=== PATIENT | male | born 1960 | race Caucasian/White ===

== ENCOUNTER → 2016-11-23 | Outpatient (CLI) | payer BC, OTHER ==
[~2016-11-23] MED LIST: ASPI81TA11 PO; ASPI81TA85 PO; ATEN25TA PO; ATOR40TA PO; BACT800T5 PO; DYAZCA PO; HYDR TOP; LOVA1CAP16 PO; METF500T PO; METR500T10 PO; NIASPAN PO; OMEGA OR; PRAV40TA2 PO; PRED20TA PO; SERT-141 PO; SERT25TA85 PO; TRIA37.53 PO; TYLE325T5 PO; [UNRECOGNIZED DRUG - OTHER] OR; neomycin OR; polyethylene glycol OR
--- NOTE | 2016-11-23 20:34 | REP ---
Clinical: Hematuria. Technique: Real time monroe scale ultrasound examination using curved array transducer. Findings: The bilateral kidneys are normal in contour, size, echogenicity, and reniform shape with that hydronephrosis, nephrolithiasis, cystic or renal mass lesion. No perinephric fluid collections are identified. Right kidney measures 11.9 x 7.4 x 6.1 cm. Left kidney measures 12.1 x 6.0 x 6.0 cm. Bladder is unremarkable. Prevoid volume equals 260 ml. Postvoid volume equals 4 ml. Postvoid residual equals 2%. Impression: Normal renal ultrasound. Signed by Johnny Garcia MD 11/23/2016 08:25 P
--- NOTE | 2016-11-23 21:54 | REP ---
Clinical: Persistent cough . Comparison: CT dated 08/05 . Technique: PA and lateral. Findings: The mediastinum and cardiac silhouette are normal. The lung caputo are clear and without acute consolidation, effusion, or pneumothorax. The skeletal structures are intact and normal. Impression: 1. No acute cardiopulmonary process. Signed by Johnny Garcia MD 11/23/2016 09:46 P
== END ==
LOC: M RAD 10:52
PROVIDERS: ATTEND Physician Assistant
DX: R05 Cough (principal)

== ENCOUNTER → 2016-12-15 | Outpatient (REF) | payer OTHER | LOC: M SMT 12:58 | PROVIDERS: ATTEND Nurse Practitioner Women's Health | DX: R31.0 Gross hematuria (principal) ==

== ENCOUNTER → 2016-12-15 | Outpatient (REF) | payer BC, OTHER | LOC: M LAB REF 12:44 | PROVIDERS: ATTEND Internal Medicine Medical Oncology | DX: C18.9 Malignant neoplasm of colon, unspecified (principal) ==

== ENCOUNTER → 2016-12-28 | Outpatient (CLI) | payer BC, OTHER ==
--- NOTE | 2016-12-28 14:41 | REP ---
Whole body PET / CT scan for restaging of colon carcinoma: Comparisons are the CT of the chest abdomen and pelvis dated 07/18/2016 and plain film PA and lateral chest study of 11/23/2069. Whole body PET / CT scanning is performed from the skull base to the upper thighs. Neck and supraclavicular areas: There is artifactual uptake in the adenoids and salivary glands. No hypermetabolic foci are identified. Chest: There are no hypermetabolic foci. Abdomen, pelvis and upper thighs: There is a 2 cm hypermetabolic focus with a standard uptake value of 7.00 in the caudate lobe of the liver. There was no lesion in this location on the comparison CT study of the 2015. There are no other hypermetabolic foci. Impression: There is a single hypermetabolic focus measuring 2 cm in diameter in the caudate lobe of the liver with a standard uptake value of 7.00. There are no other hypermetabolic foci. The study is performed with 9.6 mCi of F 18 FDG. Signed by Eleazar Orozco MD 12/28/2016 02:33 P
== END ==
LOC: M RAD 08:44
PROVIDERS: ATTEND Internal Medicine Medical Oncology
DX: C18.9 Malignant neoplasm of colon, unspecified (principal)

== ENCOUNTER → 2017-01-31 | Day surgery (SDC) | payer BC, OTHER ==
[~2017-01-31] VITALS: Ht 180.3 cm; Wt 118.8 kg
[~2017-01-31] MED LIST changes: +CIPR500T3 PO; +CIPROFLOXACIN 500 MG TAB PO SCH; +GLYCOPYRROLATE INJ 0.2 MG/ML 2 ML VIAL As Ordered ONE; +LIDOCAINE 2% INJ 100 MG/5 ML SDV (FOR ANES.) As Ordered ONE; +LR 1,000 ML IV SCH; +LevoFLOXacin IV 500 MG in APPROPRIATE DILUENT 1 EA IV ONE; +METOCLOPRAMIDE INJ 10MG/2ML VIAL (J2765) As Ordered ONE; +MIDAZOLAM INJ 2 MG/2 ML VIAL (J2250) As Ordered ONE; +NEOSTIGMINE 1MG/ML 5 ML SYRINGE (J2710) As Ordered ONE; +ONDANSETRON 4MG/2ML VIAL (J2405) As Ordered ONE; +ONDANSETRON 4MG/2ML VIAL (J2405) IV PRN; +PERCOCET 5MG/325MG TAB PO PRN; +PERCOCET PO; +PROPOFOL 200 MG/20 ML VIAL As Ordered ONE; +ROCURONIUM BROMIDE 50 MG/5 ML VIAL As Ordered ONE; +SERT25TA PO; -SERT25TA85 PO; +TRUL10IN SC; +fentaNYL 100 MCG/2 ML INJECTION (J3010) IV PRN; +fentaNYL 250 MCG/5 ML INJECTION (J3010) As Ordered ONE
[2017-01-31] MEDS: PERCOCET 5MG/325MG TAB PO PRN ×2 (21:44→22:01)
[2017-01-31 22:45] VITALS: BP 157/81
--- NOTE | 2017-02-01 11:51 | RO ---
DATE OF PROCEDURE: 01/31/2017 PREOPERATIVE DIAGNOSIS: Bladder neoplasm. POSTOPERATIVE DIAGNOSIS: Bladder neoplasm. SURGERY PERFORMED: Cystoscopy, plus exam under anesthesia, plus transurethral resection of bladder tumor bipolar resection. SURGEON: Dr. Yung Goodwin BURIAL NEEDS SALESPERSON: Nathan Whitfield, PGY3 ANESTHESIA: General. COMPLICATIONS: None. ESTIMATED BLOOD LOSS: N/A. FINDINGS: Left lateral wall bladder neoplasm about 1.5 cm. HISTORY OF PRESENT ILLNESS: This is a 56-year-old male patient that has a history of colorectal cancer. He has metastasis to the liver also. He has a bladder tumor found due to the reason that he had gross hematuria and flexible cystoscopy was done in the clinic that found a left lateral wall bladder tumor. For this reason, he was consented for cystoscopy, plus transurethral resection of the bladder tumor, plus exam under anesthesia. PROCEDURE DESCRIPTION: In a patient under general anesthesia in supine modified low lithotomy position after prepping and draping the area of concern, which included the entire genitalia, we introduced the cystoscope #21 [place] in diameter with a 30 degrees lens. The fossa navicularis, penile urethra, bulbar urethra, membranous urethra, and prostatic urethra were totally normal. The bladder had no stones, no foreign objects. Both ureteral orifices were seen excreting clear urine. There was a tumor about 1.5 to 2 cm on the left lateral wall. At that moment in time, we took the cystoscope out and grabbed the resectoscope. Under normal saline and bipolar resection, we resected the bladder tumor and then fulgurated the base of the bladder resection. There was no bleeding vessels. We then extracted the chip of bladder tumor with Ellik evacuator and spent the specimen for permanent pathology analysis. We then proceeded to actively take the cystoscope out and put a Elizondo catheter 20 [place] Helen[place] 3-way, plugged the 3-way and put the catheter to gravity and placed the balloon to 10 mL. It drained the bladder very nicely with clear urine output. PLAN: The patient will go home today. He will be prescribed ciprofloxacin 500 mg one tablet by mouth twice a day for 10 days, Percocet 5/325 mg one tablet by mouth every 6 hours as needed for pain. He will actively go back to a regular diet. He will followup at [facility] [place] in 3 days for a voiding trial. There were no complications of surgery. The specimen was sent for permanent pathology analysis.
== END | disposition home or self-care (01) ==
LOC: M SDC 13:46
PROVIDERS: ATTEND Urology
DX: D41.4 Neoplasm of uncertain behavior of bladder (principal); C19 Malignant neoplasm of rectosigmoid junction; C78.7 Secondary malignant neoplasm of liver and intrahepatic bile duct; I10 Essential (primary) hypertension; E78.2 Mixed hyperlipidemia; E11.40 Type 2 diabetes mellitus with diabetic neuropathy, unspecified; F41.9 Anxiety disorder, unspecified; N52.9 Male erectile dysfunction, unspecified; Z88.8 Allergy status to other drugs, medicaments and biological substances; Z79.899 Other long term (current) drug therapy; Z92.21 Personal history of antineoplastic chemotherapy; Z92.3 Personal history of irradiation; Z87.891 Personal history of nicotine dependence
CPT/HCPCS: 36415; 52234; 86850; 86900; 86901; 88305; J1956; J2250; J2405; J2710; J2765; J3010

== ENCOUNTER → 2017-02-16 | Outpatient (REF) | payer OTHER ==
[~2017-02-16] MED LIST changes: -CIPROFLOXACIN 500 MG TAB PO SCH; -GLYCOPYRROLATE INJ 0.2 MG/ML 2 ML VIAL As Ordered ONE; -LIDOCAINE 2% INJ 100 MG/5 ML SDV (FOR ANES.) As Ordered ONE; -LR 1,000 ML IV SCH; -LevoFLOXacin IV 500 MG in APPROPRIATE DILUENT 1 EA IV ONE; -METOCLOPRAMIDE INJ 10MG/2ML VIAL (J2765) As Ordered ONE; -MIDAZOLAM INJ 2 MG/2 ML VIAL (J2250) As Ordered ONE; -NEOSTIGMINE 1MG/ML 5 ML SYRINGE (J2710) As Ordered ONE; -ONDANSETRON 4MG/2ML VIAL (J2405) As Ordered ONE; -ONDANSETRON 4MG/2ML VIAL (J2405) IV PRN; -PERCOCET 5MG/325MG TAB PO PRN; -PROPOFOL 200 MG/20 ML VIAL As Ordered ONE; -ROCURONIUM BROMIDE 50 MG/5 ML VIAL As Ordered ONE; -fentaNYL 100 MCG/2 ML INJECTION (J3010) IV PRN; -fentaNYL 250 MCG/5 ML INJECTION (J3010) As Ordered ONE
== END ==
LOC: M SMT 14:40
PROVIDERS: ATTEND Nurse Practitioner Women's Health
DX: R39.89 Other symptoms and signs involving the genitourinary system (principal)

== ENCOUNTER → 2017-03-20 | Outpatient (REF) | payer BC, OTHER ==
[2017-03-20 13:26] LABS: INR 0.95
== END ==
LOC: M LAB REF 12:12
PROVIDERS: ATTEND Internal Medicine Medical Oncology
DX: C18.9 Malignant neoplasm of colon, unspecified (principal)

== ENCOUNTER → 2017-03-23 | Outpatient (CLI) | payer BC, OTHER ==
[~2017-03-23] MED LIST changes: +LIDOCAINE W/EPINEPHRINE 1% 20ML VIAL As Ordered ONE; +MIDAZOLAM INJ 2 MG/2 ML VIAL (J2250) As Ordered ONE; +SODIUM BICARBONATE 8.4% INJ 50MEQ 50 ML VIAL As Ordered ONE; +ceFAZolin 1GM INJ (J0690) As Ordered ONE; +fentaNYL 100 MCG/2 ML INJECTION (J3010) As Ordered ONE
--- NOTE | 2017-03-23 17:45 | REPKIM ---
CLINICAL HISTORY: Metastatic colon ca. The referring service has asked a chest [id number] placement for chemotherapy. PROCEDURE PERFORMED: Placement of totally implantable venous access device under combined sonographic and fluoroscopic guidance INTERVENTIONALIST: Karissa Echavarria MD CONSENT: The risks, benefits and alternatives to the procedure were explained to the patient and informed written consent was obtained. MEDICATIONS: Local Lidocaine, Ancef 1g IV, Versed IV and Fentanyl IV. SEDATION: Anxiolytic conscious sedation using Versed 1.0 mg IV and Fentanyl 50 mcg IV; starting time at 1505 and end at 1545. Independent trained observer was present during the entire duration of the conscious sedation for monitoring. EBL: 5 mL FLUORO TIME: 0.6 minutes DEVICE USED: [place] Port 8-Citizen Of [place], Single-Lumen Lot#[id number] PROCEDURE/FINDINGS: The patient was brought to the interventional radiology suite and was positioned supine on the table. Time out procedure was performed. Real time ultrasound was used and permanent image stored. The right IJ vein is patent and compressible. Using ultrasound guidance the internal jugular vein was accessed with a micropuncture needle, after infiltration of the skin and deep tissues with local anesthetic. A peel-away sheath was placed. The catheter tip was inserted via the sheath under controlled respiration. The sheath was removed, and the catheter was flushed with heparinized saline and clamped. Next attention was turned to creation of a subcutaneous pocket for the port along the upper chest. The overlying skin and deep tissues were infiltrated with local anesthetic. A transverse skin incision was made long enough to accommodate the reservoir, and using blunt dissection a subcutaneous pocket was created. A tunnel was created from the pocket to the access site. A clamp was advanced from the pocket incision to the venous access site and used to grasp the free end of the catheter and pull it through to the pocket incision. The catheter was trimmed, attached to the reservoir, and flushed with heparinized saline. The reservoir was inserted into the pocket and secured with 2-0 absorbable sutures. The deep tissue was closed with interrupted 2-0 Vicryl suture. The skin incision was closed with a running subcuticular suture of 4-0 Vicryl. The venotomy incision was closed with 4-0 Vicryl suture. Mastisol and Steri-Strips were applied. The port was then accessed and Heparin (100 units/mL concentration) locked in the port. A sterile dressing was then applied. Post procedure chest spot film radiograph showed the tip of the catheter is at the cavoatrial junction. The patient tolerated the procedure well with no immediate complications. This procedure was performed using ultrasound and fluoroscopy. Dr. Echavarria was present. IMPRESSION: 1. The right IJ vein is patent and compressible. 2. Successful placement of right IJ chest port placement as discussed above. The chest [id number] is ready for use. cc: Zuleima Garvin MD [facility]
== END | disposition home or self-care (01) ==
LOC: M IRPRO 12:10
PROVIDERS: ATTEND Internal Medicine Medical Oncology
DX: C18.9 Malignant neoplasm of colon, unspecified (principal); C79.9 Secondary malignant neoplasm of unspecified site
CPT/HCPCS: 36561; 76937; 77001; 99152; 99153; C1788; C1894; J0690; J2250; J3010

== ENCOUNTER → 2017-04-06 | Outpatient (REF) | payer OTHER ==
[~2017-04-06] MED LIST changes: -LIDOCAINE W/EPINEPHRINE 1% 20ML VIAL As Ordered ONE; -MIDAZOLAM INJ 2 MG/2 ML VIAL (J2250) As Ordered ONE; -SODIUM BICARBONATE 8.4% INJ 50MEQ 50 ML VIAL As Ordered ONE; -ceFAZolin 1GM INJ (J0690) As Ordered ONE; -fentaNYL 100 MCG/2 ML INJECTION (J3010) As Ordered ONE
[2017-04-06 16:53] LABS: ALBUMIN 3.7 GM/DL (3.2-5.2); ALBUMIN/GLOBULIN RATIO 0.97 (1.00-1.93); ALKALINE PHOSPHATASE 69 U/L (45-117); ALT/SGPT 35 U/L (12-78); ANION GAP 6 MEQ/L (8-16); AST/SGOT 16 U/L (15-37); BILIRUBIN,TOTAL 0.4 MG/DL (0.2-1.0); BLOOD UREA NITROGEN 15 MG/DL (7-18); CALCIUM LEVEL 9.6 MG/DL (8.5-10.1); CARBON DIOXIDE LEVEL 31 MEQ/L (21-32); CHLORIDE LEVEL 102 MEQ/L (98-107); CHOLESTEROL LEVEL 301 MG/DL (<200); CREATININE FOR GFR 1.05 MG/DL (0.70-1.30); GLOMERULAR FILTRATION RATE > 60.0 (>56); GLUCOSE, FASTING 126 MG/DL (70-105); POTASSIUM SERUM 4.4 MEQ/L (3.5-5.1); SODIUM LEVEL 139 MEQ/L (136-145); TOTAL PROTEIN 7.5 GM/DL (6.4-8.2); TRIGLYCERIDES LEVEL 142 MG/DL (<150)
== END ==
LOC: M SFHCLACO 09:49
PROVIDERS: ATTEND Physician Assistant
DX: I10 Essential (primary) hypertension (principal); E11.9 Type 2 diabetes mellitus without complications; E78.2 Mixed hyperlipidemia

== ENCOUNTER → 2017-04-25 | Outpatient (REF) | payer OTHER | LOC: M LAB REF 13:25 | PROVIDERS: ATTEND Internal Medicine Medical Oncology | DX: C18.9 Malignant neoplasm of colon, unspecified (principal) ==

== ENCOUNTER → 2017-05-09 | Outpatient (REF) | payer OTHER | LOC: M LAB REF 13:14 | PROVIDERS: ATTEND Internal Medicine Medical Oncology | DX: C18.9 Malignant neoplasm of colon, unspecified (principal) ==

== ENCOUNTER → 2017-05-24 | Outpatient (REF) | payer OTHER ==
[~2017-05-24] MED LIST changes: +ASPI-101 PO; -ASPI81TA11 PO; -ATOR40TA PO; +ATOR40TA75 PO; +AVASINJ2 IV; +COUM2.5T17 PO; +DEXA4TA PO; +LIDO1CRE14 TOP; +LOSA25TA8 PO; -METF500T PO; +METF500T13 PO; +METR1TAB66 PO; -METR500T10 PO; +OMEG100011 PO; +PANT40TA2 PO; +PROC10TA PO; +TRIA37.5 PO; +ZOFR8TAB PO; +[UNRECOGNIZED DRUG - CODE] IM; +[UNRECOGNIZED DRUG - CODE] IV; +[UNRECOGNIZED DRUG - CODE] IV
== END ==
LOC: M LAB REF 12:43
PROVIDERS: ATTEND Internal Medicine Medical Oncology
DX: C18.9 Malignant neoplasm of colon, unspecified (principal)

== ENCOUNTER → 2017-06-20 | Outpatient (CLI) | payer BC, OTHER ==
[~2017-06-20] MED LIST changes: +GASTROGRAFIN SOLUTION 30ML (Q9963) As Ordered ONE; +ISOVUE-370 76% 100ML VIAL (Q9967) As Ordered ONE
--- NOTE | 2017-06-21 04:45 | REP ---
Clinical: History of metastatic colon cancer. Technique: Axial contrast enhanced images from the thoracic inlet to the pubic symphysis using oral and 100 ml Isovue 370 intravenous contrast material with coronal and sagittal re-formations. Comparison: 07/18/2016. Findings: The bilateral lung caputo are well-aerated, relatively symmetric and clear. No parenchymal consolidation, significant nodule or mass lesion. A 2 mm focus of presumed scarring in the posterior apical right lower lobe ( image 48) remains stable. No pleural effusion/reaction. No pneumothorax. Tracheobronchial tree is patent. No axillary, hilar, or mediastinal adenopathy. Mediastinum demonstrates normal thoracic aorta and heart/pericardium. Surrounding musculoskeletal structures demonstrate age-related degenerative changes. Impression: Chronic stable changes. No acute mediastinal or pleuroparenchymal process appreciated. Signed by Johnny Garcia MD 06/21/2017 04:36 A
--- NOTE | 2017-06-21 05:14 | REP ---
Clinical: History of metastatic colon cancer. Technique: Axial contrast enhanced images from the thoracic inlet to the pubic symphysis using oral and 100 ml Isovue 370 intravenous contrast material with precontrast and delayed images of the abdomen as well as coronal and sagittal re-formations. Comparison: 07/18/2016. Findings: The current examination demonstrates surgical clips and adjacent low density changes in the caudate lobe of the liver as well as along the periphery of the left lobe adjacent to the ligamentum which represent a change from prior examination and should be correlated with recent surgical history. No further focal hepatic lesion identified. Spleen, pancreas, gallbladder, bilateral adrenal glands and kidneys are normal. The enteric system is without obstruction or acute inflammatory process. Normal terminal ileum and appendix identified in the right lower quadrant. Postsurgical changes related to resection and anastomoses at the rectosigmoid level remain stable and clear. No perisurgical infiltration, adenopathy or mass lesion identified at the level of the distal pelvis. Pelvis demonstrates collapsed normal bladder and age appropriate prostate/seminal vesicles. Small fat containing left inguinal hernia noted. No ascites. No obvious adenopathy. No significant new or recurrent mass lesion. Abdominal aorta and vasculature without aneurysm or dissection. Musculoskeletal structures demonstrate age-related changes without focal osseous abnormality. Impression: 1. Relatively new presumed postsurgical changes in the liver as described above with adjacent low density. These findings represent a change from prior examination and require correlation. No further hepatic lesions are identified. 2. Area of prior resection and anastomosis at the rectosigmoid is relatively clear and without acute or recurrent process. 3. No ascites. No new or recurrent mass lesion. No adenopathy. Signed by Johnny Garcia MD 06/21/2017 05:05 A
== END ==
LOC: M RAD 14:24
PROVIDERS: ATTEND Internal Medicine Medical Oncology
DX: C18.9 Malignant neoplasm of colon, unspecified (principal); Z88.8 Allergy status to other drugs, medicaments and biological substances; K76.89 Other specified diseases of liver; Z98.890 Other specified postprocedural states; Z98.0 Intestinal bypass and anastomosis status
CPT/HCPCS: 71260; 74178; Q9963; Q9967

== ENCOUNTER → 2017-07-04 | Outpatient (REF) | payer OTHER ==
[~2017-07-04] MED LIST changes: -GASTROGRAFIN SOLUTION 30ML (Q9963) As Ordered ONE; -ISOVUE-370 76% 100ML VIAL (Q9967) As Ordered ONE
== END ==
LOC: M LAB REF 13:45
PROVIDERS: ATTEND Internal Medicine Medical Oncology
DX: C18.9 Malignant neoplasm of colon, unspecified (principal)

== ENCOUNTER → 2017-07-27 | Outpatient (REF) | payer OTHER ==
[2017-07-27 16:07] LABS: ALBUMIN 3.1 GM/DL (3.2-5.2); ALBUMIN/GLOBULIN RATIO 0.86 (1.00-1.93); ALKALINE PHOSPHATASE 72 U/L (45-117); ALT/SGPT 74 U/L (12-78); ANION GAP 11 MEQ/L (8-16); AST/SGOT 40 U/L (15-37); BILIRUBIN,TOTAL 0.7 MG/DL (0.2-1.0); BLOOD UREA NITROGEN 17 MG/DL (7-18); CALCIUM LEVEL 8.9 MG/DL (8.5-10.1); CARBON DIOXIDE LEVEL 27 MEQ/L (21-32); CHLORIDE LEVEL 104 MEQ/L (98-107); CHOLESTEROL LEVEL 165 MG/DL (<200); CREATININE FOR GFR 1.01 MG/DL (0.70-1.30); GLOMERULAR FILTRATION RATE > 60.0 (>56); GLUCOSE, FASTING 126 MG/DL (70-105); POTASSIUM SERUM 4.1 MEQ/L (3.5-5.1); SODIUM LEVEL 142 MEQ/L (136-145); TOTAL PROTEIN 6.7 GM/DL (6.4-8.2); TRIGLYCERIDES LEVEL 205 MG/DL (<150)
== END ==
LOC: M SFHCLACO 08:12
PROVIDERS: ATTEND Physician Assistant
DX: I10 Essential (primary) hypertension (principal); E78.2 Mixed hyperlipidemia; E11.9 Type 2 diabetes mellitus without complications

== ENCOUNTER → 2017-08-01 | Outpatient (CLI) | payer BC, OTHER ==
--- NOTE | 2017-08-01 13:48 | REP ---
Clinical: Pain and swelling. Post chemotherapy. Findings: Real time monroe scale and color Doppler evaluation using linear high frequency transducer. Findings: Ultrasound examination of the left upper extremity demonstrates occlusive thrombus within the mid to distal basilic vein. The remainder of the examination including visualized jugular vein, subclavian, axillary, brachial and cephalic veins show normal flow, wave patterns and velocities. Impression: Positive examination with occlusive thrombus in the mid to distal basilic vein. Signed by Johnny Garcia MD 08/01/2017 01:40 P
== END ==
LOC: M RAD 13:04
PROVIDERS: ATTEND Internal Medicine Medical Oncology
DX: I82.612 Acute embolism and thrombosis of superficial veins of left upper extremity (principal)

== ENCOUNTER → 2017-08-01 | Outpatient (REF) | payer OTHER, BC | LOC: M LAB REF 08:22 | PROVIDERS: ATTEND Internal Medicine Medical Oncology | DX: C18.9 Malignant neoplasm of colon, unspecified (principal) ==

== ENCOUNTER 2017-08-29 11:36 | Inpatient (IN) | payer BC, OTHER ==
[~2017-08-29] VITALS: Ht 167.6 cm; Wt 114.9 kg
[~2017-08-29 11:36] MED LIST changes: -AVASINJ2 IV; -COUM2.5T17 PO; -DEXA4TA PO; -ISOVUE-370 76% 100ML VIAL (Q9967) As Ordered ONE; -LIDO1CRE14 TOP; -LOSA25TA8 PO; -OMEG100011 PO; -PANT40TA2 PO; -PROC10TA PO; -TRIA37.5 PO; -ZOFR8TAB PO; -[UNRECOGNIZED DRUG - CODE] IM; -[UNRECOGNIZED DRUG - CODE] IV; -[UNRECOGNIZED DRUG - CODE] IV
[2017-08-29] MEDS ORDERED: ASPI81TA85 PO (11:54)
[2017-08-29] MEDS ORDERED: PROC10TA PO (11:54)
[2017-08-29] MEDS ORDERED: ZOFR8TAB PO (11:54)
[2017-08-29] MEDS ORDERED: TRIA37.5 PO (11:54)
[2017-08-29] MEDS ORDERED: PANT40TA2 PO (11:54)
[2017-08-29] MEDS ORDERED: OMEG100011 PO (11:54)
[2017-08-29 12:23] LABS: MEAN CORPUSCULAR HEMOGLOBIN 31.9 pg (27.0-33.0); MEAN CORPUSCULAR HGB CONC 33.1 g/dl (32.0-36.5); MEAN CORPUSCULAR VOLUME 96.4 fl (80.0-96.0); RED CELL DISTRIBUTION WIDTH 16.8 % (11.5-14.5)
[2017-08-29 12:42] LABS: INR 1.01
[2017-08-29 12:48] LABS: ANION GAP 6 MEQ/L (8-16); BLOOD UREA NITROGEN 15 MG/DL (7-18); CALCIUM LEVEL 9.3 MG/DL (8.5-10.1); CARBON DIOXIDE LEVEL 33 MEQ/L (21-32); CHLORIDE LEVEL 101 MEQ/L (98-107); CREATININE FOR GFR 1.31 MG/DL (0.70-1.30); GLOMERULAR FILTRATION RATE > 60.0 (>56); GLUCOSE, FASTING 98 MG/DL (70-105); POTASSIUM SERUM 3.4 MEQ/L (3.5-5.1); SODIUM LEVEL 140 MEQ/L (136-145)
[2017-08-29] MEDS ORDERED: [UNRECOGNIZED DRUG - CODE] IV (12:58)
[2017-08-29] MEDS ORDERED: [UNRECOGNIZED DRUG - CODE] IV (12:58)
[2017-08-29] MEDS ORDERED: LOSA25TA8 PO (12:58)
[2017-08-29] MEDS ORDERED: [UNRECOGNIZED DRUG - CODE] IM (12:58)
[2017-08-29] MEDS ORDERED: AVASINJ2 IV (12:59)
[2017-08-29 13:01] LABS: ADD MANUAL DIFFER YES; DIFF SLIDE NUMBER 237; PLATELET COUNT, AUTOMATED 91 10^3/uL (150-450)
[2017-08-29] MEDS ORDERED: DEXA4TA PO (13:03)
[2017-08-29] MEDS ORDERED: LIDO1CRE14 TOP (13:03)
[2017-08-29 13:05] LABS: BASOPHILS 2 % (0-4); EOSINOPHILS 2 % (0-5); POIKILOCYTOSIS 1+
[2017-08-29 13:06] LABS: ANISOCYTOSIS 1+; POLYCHROMASIA 1+
[2017-08-29 13:07] LABS: IMMATURE PLATELET FRACTION % 5.2 % (0.0-10.9); PLATELET F 96
[2017-08-29] MEDS ORDERED: HEPARIN SOD (PORCINE) 5000 UNITS/ML VIAL IV ONE (13:30)
--- NOTE | 2017-08-29 13:59 | HPEPDOC ---
[facility] Medical History & Physical Date of Admission Aug 29, 2017 History and Physical ATTENDING: PCP: Delfino CHACON CC: SOB HPI: 57yoM with a past medical history significant for Stage 4 Colon Ca following with Dr Garvin, receiving Chemotherapy, due today, postponed to as per Dr Garvin related to his labs. Was noted 08/01/17 to have LUE Superficial Vein Thrombosis (Basilic vein) as per Dr Garvin. Pt states RUE edema and and erythema resolved. For the past 1 month he has noticed SOB, lightheaded, dizzy, and ease of fatigue. Spoke to Dr Garvin today and was referred for testing, which when completed he was referred to ED for evaluation and management. Denies any fevers, chills, BAE, CP, cough, palpitations, abdominal pain, N/V/D or changes in bowel or bladder habits. Denies prior bleeding history. states he sometimes has blood with BM at the end of a chemo cycle and then resolves. Blood on the paper and in the bowl. No dark stools. Upon presentation to the hospital the patient was found to have PE, thus the hospitalist team was consulted. PMHx: HTN HLD DM2 Colon Ca S/P resection/radiation tx completed 04/05. Chemo due 09/05/[address] Garvin. Anxiety ED chronic tinnitus PSHX: Rt inguinal hernia HNP L4 1997 vasectomy Rectosigmoid Colon Ca resection. Dr Koehler. Colonoscopy 07/05 TURBT 02/03 Liver resection 03/06 Dr Zambrano Liver Specialist [facility] Obesity. BMI 42. SOCHX: Resides in: [facility] Marital Status: Kids: 2retired [employer] Tobacco use: denies ETOH: denies Illicit Drugs: Denies Recent travel: denies Advanced directives: none FAMHX: Mother: HTN Father: ND Siblings: 1 brother, 1 sister Alive, breast Ca Children: 2 Dtr Alive, well Unexpected deaths due to medical reasons: None. ROS: As noted in HPI, otherwise 11pt ROS of systems reviewed and unremarkable. PE: GEN: 57yoM, appears stated age. Well-nourished, well developed. No acute distress. Alert and oriented x 3. Pleasant, interactive. HEENT: Normocephalic, atraumatic. Pupils are equal, round, and reactive to light. Extraocular movements are intact. No nystagmus appreciated. Sclera are nonicteric. Conjunctiva without injection. Nose midline. Nasal turbinates without bogginess. EACs both patent BL. TMs both visualized and monroe with good cone of light, no bulging or erythema. No facial asymmetry. Moist mucous membranes. Dentition fair. Pharynx pink and moist, no cobblestoning. Neck supple , trachea midline. No lymphadenopathy or thyromegaly appreciated. CHEST: Regular rate and rhythm, +S1, +S2 LUNGS: Clear to auscultation bilaterally. No wheezes, rales, or rhonchi. Breathing appears symmetric and easy. Patient is speaking in full sentences. No accessory muscle use. ABD: Round, soft, non-tender, non-distended. +Bowel sounds throughout. No rebound or guarding. No costovertebral angle tenderness. EXT: Pulses 2+ bilaterally dorsalis pedis and radial. No lower extremity edema appreciated. SKIN: [place], dry, warm. Capillary refill <2sec. No rashes. NEURO: Alert and oriented x 3. Cranial nerves III-XII are intact. No focal deficits appreciated. LUE U/S 08/01/17 Ultrasound examination of the left upper extremity demonstrates occlusive thrombus within the mid to distal basilic vein. The remainder of the examination including visualized jugular vein, subclavian, axillary, brachial and cephalic veins show normal flow, wave patterns and velocities. CTA Chest Moderate bilateral pulmonary emboli right greater than left. U/S Comparison is a 08/01. 2017. On the comparison study. There is deep vein thrombus in the mid to distal left basilic vein. The study identifies extension of the deep vein thrombus e into the left axillary vein. In the basilic vein there is now a trace of vascular flow indicating that the thrombus in the basilic vein as now nonocclusive. EKG: SR 60 bpm. A&P: 57yoM with a past medical history significant for Stage 4 Colon Ca following with Dr Garvin, receiving Chemotherapy, due today, postponed to as per Dr Garvin related to his labs. Was noted 08/01/17 to have LUE Superficial vein thrombosis (Basilic vein) as per Dr Garvin. Pt states RUE edema and and erythema resolved. For the past 1 month he has noticed SOB, lightheaded, dizzy, and ease of fatigue. Spoke to Dr Garvin today and was referred for testing, which when completed he was referred to ED for evaluation and management. 1. The patient will be admitted to PCU for at least [address] Ibarra 's service. Pt is discussed with Dr Shah. 2. UE DVT/PE. Heparin gtt as per protocol with PTT Q6 hr. Plan to bridge to Coumadin, Coumadin 5 mg po x 1 tonight. Daily INR. 3. Stage 4 Colon CA. Follows as outpt with Dr Garvin. Pt last received Chemo 2 weeks ago. Was due for chemo today but labs were reviewed as per Dr Garvin and this was postponed until 09/05/17. Pt is noted to be pancytopenic. Also monitor Q6 CBC as well. 4. HTN. Atenolol with hold parameters. Hold diuretic temporarily. 5. DM2. CC diet. Hold Trulicity/metformin. SSI. 6. HLD. Cont statin. The patient is a Full code Vital Signs Vital Signs Date Time Temp Pulse Resp B/P (MAP) Pulse Ox O2 Delivery O2 Flow Rate FiO2 08/29/17 12:05 08/29/17 11:51 97.7 68 16 97 Room Air Laboratory Data Labs 24H Laboratory Tests 2 08/29/17 12:05: Nucleated Red Blood Cells % (auto) 0.0, Neutrophils 58, Lymphocytes (Manual) 20 , Monocytes (Manual) 15H, Eosinophils (Manual) 2, Basophils (Manual) 2, Atypical Lymphocytes 3, Platelet Estimate DECREASED, Immature Platelet Fraction 5.2, Polychromasia 1+, Poikilocytosis 1+, Anisocytosis 1+, Prothrombin Time 13.4 , Prothromb Time International Ratio 1.01, Activated Partial Thromboplast Time 25.2L, Anion Gap 6L, Glomerular Filtration Rate > 60.0, Blood Urea Nitrogen 15, Creatinine 1.31H, Sodium Level 140, Potassium Level 3.4L, Chloride Level 101, Carbon Dioxide Level 33H, Calcium Level 9.3 CBC/BMP Laboratory Tests 08/29/17 12:05 Red Blood Count 3.57 L, Mean Corpuscular Volume 96.4 H, Mean Corpuscular Hemoglobin 31.9, Mean Corpuscular Hemoglobin Concent 33.1, Red Cell Distribution Width 16.8 H, Calcium Level 9.3 Home Medications Scheduled (Trulicity) 0.75 Mg/0.5 Ml Inj, 0.75 MG SC QWEEK SATURDAYS (Tbwxsdbgy-Lurvxpcaub-Fasi 2.5-2.5 %) 1 Cre Cre, 1 DOSE TOP ASDIRECTED APPLY TO CHEMO PORT 1-2 HOURS BEFORE RECEIVING CHEMO Aspirin (Aspir-81) 81 Mg Tab, 81 MG PO QHS Atenolol (Atenolol) 25 Mg Tab, 25 MG PO DAILY Atorvastatin Calcium (Atorvastatin Calcium) 40 Mg Tab, 40 MG PO QHS Bevacizumab (Avastin) Unknown Strength Inj, Unknown Dose IV Q2WK WAS DUE 08/29/17 BUT BLOOD COUNTS TOO LOW Dexamethasone (Dexamethasone) 4 Mg Tab, 4 MG PO ASDIRECTED TAKE 1BID ON DAYS 2&3 AFTER CHEMO THEN 1QD ON DAYS 4&5 AFTER CHEMO Fluorouracil (Fluorouracil) Unknown Strength Inj, Unknown Dose IV Q2WK WAS DUE 08/29/17 BUT BLOOD COUNTS TOO LOW Hydrochlorothiazide W/Triamter (Triamterene/Hydrochloroth 37.5-25 mg) 1 Tab Tab , 1 TAB PO DAILY Leucovorin Calcium (Leucovorin Calcium) Unknown Strength Inj, Unknown Dose IM Q2WK WAS DUE 08/29/17 BUT BLOOD COUNTS TOO LOW Losartan Potassium (Losartan Potassium) 25 Mg Tab, 25 MG PO DAILY Metformin Hydrochloride (Metformin HCl) 500 Mg Tab, 500 MG PO DAILY Sar[place]osa 3 Polyunsat Fatty Acids ([place]osa 3 1000 mg) 1 Cap Cap, 2 CAP PO BID Oxaliplatin (Oxaliplatin) 50 Mg Inj, 50 MG IV Q2WK WAS DUE 08/29/17 BUT BLOOD COUNTS TOO LOW Pantoprazole Sodium (Pantoprazole Sodium) 40 Mg Tab, 40 MG PO DAILY Scheduled PRN Ondansetron HCl (Zofran) 8 Mg Tab, 8 MG PO BID PRN for NAUSEA OR VOMITING Prochlorperazine Maleate (Prochlorperazine Maleate) 10 Mg Tab, 10 MG PO Q6H PRN for NAUSEA Allergies Coded Allergies: Fluconazole (Verified Allergy, Severe, DYSPNEA,RASH, 01/31/17) Niacin (Verified Allergy, Severe, DYSPNEA/RASH, 07/28/15) CLARIFIED PER PATIENT Anabell Robbins Aug 29, 2017 13:59 ELDA SHAH MD Aug 30, 2017 12:03
[2017-08-29] MEDS ORDERED: ACETAMINOPHEN TAB 650MG DOSE (2X325MG) PO PRN (14:30)
[2017-08-29] MEDS ORDERED: GLUCOSE 4 GM CHEW TABLET PO PRN (14:45)
[2017-08-29] MEDS ORDERED: GLUCAGON FOR INJ 1 MG VIAL (J1610) SC PRN (14:45)
[2017-08-29] MEDS ORDERED: DEXTROSE 50% 50 ML SYRINGE IV PRN (14:45)
[2017-08-29] MEDS: HEPARIN DRIP 25,000 UNITS in APPROPRIATE DILUENT 1 EA IV SCH (14:52)
[2017-08-29] MEDS ORDERED: HEPARIN SOD (PORCINE) 5000 UNITS/ML VIAL IV PRN (15:00)
[2017-08-29] MEDS ORDERED: WARFARIN SOD 5 MG TAB PO ONE (16:00)
[2017-08-29] MEDS ORDERED: POTASSIUM CHLORIDE 10 MEQ SR TABLET PO ONE (16:00)
[2017-08-29 16:30] VITALS: BP 144/84
[2017-08-29] MEDS: HumaLOG INSULIN (NovoLOG) PER UNIT SC SCH ×2 (16:51→20:20)
[2017-08-29 20:00] VITALS: BP 140/86
[2017-08-29] MEDS: ATORVASTATIN 20 MG TAB PO SCH (20:18)
--- NOTE | 2017-08-29 20:36 | ECGEPIP ---
Stationary ECG Study [facility] - ED Test Date: 2017-08-29 Pat Name: PINEDA SHERMAN Department: Room: - Gender: M Sales And Training Specialist: vladimir : 1960 Requested By: Carl Seth Order Number: [id number] Reading MD: Norma Pierre Measurements Intervals [place] Rate: 60 P: 39 ND: 193 QRS: 21 QRSD: 102 T: 45 QT: 397 QTc: 397 Interpretive Statements SINUS RHYTHM SIMILAR 08/20/15 Electronically Signed On 08-29-2017 20:35:54 EDT by Norma Pierre
[2017-08-29 21:07] LABS: MEAN CORPUSCULAR HEMOGLOBIN 31.9 pg (27.0-33.0); MEAN CORPUSCULAR HGB CONC 33.2 g/dl (32.0-36.5); MEAN CORPUSCULAR VOLUME 95.9 fl (80.0-96.0); RED CELL DISTRIBUTION WIDTH 16.9 % (11.5-14.5); WHITE BLOOD COUNT 1.9 10^3/uL (4.0-10.0)
[2017-08-29 21:31] LABS: ANION GAP 6 MEQ/L (8-16); BLOOD UREA NITROGEN 15 MG/DL (7-18); CALCIUM LEVEL 9.7 MG/DL (8.5-10.1); CARBON DIOXIDE LEVEL 30 MEQ/L (21-32); CHLORIDE LEVEL 103 MEQ/L (98-107); CREATININE FOR GFR 1.16 MG/DL (0.70-1.30); GLOMERULAR FILTRATION RATE > 60.0 (>56); GLUCOSE, FASTING 131 MG/DL (70-105); SODIUM LEVEL 139 MEQ/L (136-145)
[2017-08-29 21:32] LABS: POTASSIUM SERUM 3.8 MEQ/L (3.5-5.1)
[2017-08-29 21:55] VITALS: BP 140/70
[2017-08-30] VITALS (7 sets, daily range): BP systolic 132–158; BP diastolic 72–88
[2017-08-30 02:23] LABS: MEAN CORPUSCULAR HEMOGLOBIN 31.7 pg (27.0-33.0); WHITE BLOOD COUNT 1.8 10^3/uL (4.0-10.0)
[2017-08-30 09:00] LABS: MEAN CORPUSCULAR HEMOGLOBIN 31.9 pg (27.0-33.0); MEAN CORPUSCULAR HGB CONC 33.1 g/dl (32.0-36.5); MEAN CORPUSCULAR VOLUME 96.6 fl (80.0-96.0); RED CELL DISTRIBUTION WIDTH 16.8 % (11.5-14.5); WHITE BLOOD COUNT 1.9 10^3/uL (4.0-10.0)
[2017-08-30] MEDS: PANTOPRAZOLE 40MG TAB (PROTONIX) PO SCH (09:04)
[2017-08-30] MEDS: ATENOLOL 25 MG TAB PO SCH (09:05)
[2017-08-30] MEDS: HumaLOG INSULIN (NovoLOG) PER UNIT SC SCH ×4 (09:07→20:22)
[2017-08-30] MEDS: HEPARIN DRIP 25,000 UNITS in APPROPRIATE DILUENT 1 EA IV SCH (09:10)
[2017-08-30] MEDS ORDERED: AQUAPHOR **100GM** OINT TOP PRN (14:30)
--- NOTE | 2017-08-30 15:35 | IPNPDOC ---
Date Seen The patient was seen on 08/30/17. Progress Note SUBJECTIVE: Patient is a 57 showed gentleman admitted yesterday for upper extremity DVT and pulmonary emboli. He's currently being bridged with heparin and Coumadin. He denies chest pain, shortness of breath, productive sputum, hemoptysis. He denies nausea, vomiting, diarrhea. He's tolerating oral intake. No issues with voiding or bowel movements. OBJECTIVE PHYSICAL EXAMINATION: VITAL SIGNS: Please see below. GENERAL: No acute distress, alert and oriented HEENT: PERRLA. Throat Clear. Neck supple CARDIOVASCULAR: Regular rate and rhythm. RESPIRATORY: Clear to auscultation bilaterally. ABDOMINAL: Soft, anteroseptal positive bowel sounds, masses or rebound EXTREMITIES: No edema, no calf tenderness NEUROLOGICAL: Cranial nerves II through XII grossly intact. No gross motor sensory deficits PSYCHOLOGICAL: Negative LABORATORY DATA: Please see below. MICROBIOLOGY: Please see below. DVT prophylaxis ordered?: Yes ASSESSMENT AND PLAN: This is a 57-year-old gentleman with left upper extremity DVT and pulmonary embolism. He'll be here for at least 5 days while we bridge him from heparin to Coumadin. PROBLEMS: 1. Pulmonary emboli: He scores class III on the PE severity index him each criteria for inpatient treatment. We'll continue with bridging heparin and Coumadin with goal INR 2-3 which will likely be achieved in the next 5-6 days.. 2. Left UE DVT: As outlined above 3. Stage 4 Colon CA. Follows as outpt with Dr Garvin. Pt last received Chemo 2 weeks ago. Was due for chemo today but labs were reviewed as per Dr Garvin and this was postponed until 09/05/17. Pt is noted to be pancytopenic. Also monitor Q6 CBC as well. 4. Pancytopenia: likely secondary to recent chemo. Appears afebrile and no signs of sepsis. will continue to follow. Check CBC with diff tomorrow and calculate ANC. 5. HTN. Continue Atenolol with hold parameters. Hold diuretic temporarily. 6. DM2. CC diet. Hold Trulicity/metformin. SSI. 7. HLD. Cont statin. 8. Anxiety: Stable. 9. DVT prophylaxis: Ridging with heparin and Coumadin with goal of therapy INR 2 -3 DISPOSITION: Patient will likely need to be here for at least 5 days. He is stable hemodynamically. Therefore, I will downgrade him to medical surgical floor on telemetry.. VS, I&O, 24H, Fishbone Vital Signs/I&O Vital Signs Date Time Temp Pulse Resp B/P (MAP) Pulse Ox O2 Delivery O2 Flow Rate FiO2 08/30/17 12:00 97.5 75 18 140/82 (101) 97 Room Air I&O- Last 24 Hours up to 6 AM 08/31/17 06:00 Intake Total 360 ml Output Total 600 ml Balance -240 ml Laboratory Data 24H LABS Laboratory Tests 2 08/29/17 16:46: Bedside Glucose (Misc Panel) 109H 08/29/17 20:06: Bedside Glucose (Misc Panel) 137H 08/29/17 20:50: Activated Partial Thromboplast Time 140.6*H, Anion Gap 6L, Glomerular Filtration Rate > 60.0, Blood Urea Nitrogen 15, Creatinine 1.16, Sodium Level 139, Potassium Level 3.8, Chloride Level 103, Carbon Dioxide Level 30, Calcium Level 9.7, Total Creatine Kinase 141, Creatine Kinase MB 1.0, Creatine Kinase MB Relative Index 0.70, Troponin I < 0.02 08/30/17 06:20: Activated Partial Thromboplast Time 86.7H, Total Creatine Kinase 125, Creatine Kinase MB 1.0, Creatine Kinase MB Relative Index 0.80, Troponin I < 0.02 08/30/17 06:55: Bedside Glucose (Misc Panel) 138H 08/30/17 11:30: Bedside Glucose (Misc Panel) 170H 08/30/17 12:12: Activated Partial Thromboplast Time 73.1H CBC/BMP Laboratory Tests 08/29/17 20:50 Red Blood Count 3.39 L, Mean Corpuscular Volume 95.9, Mean Corpuscular Hemoglobin 31.9, Mean Corpuscular Hemoglobin Concent 33.2, Red Cell Distribution Width 16.9 H, Calcium Level 9.7, Total Creatine Kinase 141 08/30/17 02:07 Red Blood Count 3.50 L, Mean Corpuscular Volume 96.0, Mean Corpuscular Hemoglobin 31.7, Mean Corpuscular Hemoglobin Concent 33.0, Red Cell Distribution Width 17.0 H 08/30/17 08:47 Red Blood Count 3.79 L, Mean Corpuscular Volume 96.6 H, Mean Corpuscular Hemoglobin 31.9, Mean Corpuscular Hemoglobin Concent 33.1, Red Cell Distribution Width 16.8 H Microbiology Microbiology 08/30/17 Stool Occult Blood (JENNIE) - Final, Complete LEENA ALEJANDRA DO Aug 30, 2017 15:35
[2017-08-30] MEDS: diphenhydrAMINE 12.5MG/5ML ELIXIR UDC XX SCH ×2 (17:01→20:19)
[2017-08-30] MEDS: MAALOX 30 ML SUSP *UDC SSP SCH ×2 (17:02→20:19)
[2017-08-30] MEDS: ATORVASTATIN 20 MG TAB PO SCH (20:18)
[2017-08-31 05:43] LABS: BASO % 0.7 % (0.0-1.0); EOS % 2.9 % (0.0-3.0); IMMATURE GRANULOCYTE % 0.7 % (0-0); LYMPH # 0.3 10^3/uL (1.5-4.5); LYMPH % 21.9 % (24.0-44.0); MEAN CORPUSCULAR HEMOGLOBIN 31.3 pg (27.0-33.0); MEAN CORPUSCULAR HGB CONC 32.6 g/dl (32.0-36.5); MEAN CORPUSCULAR VOLUME 96.1 fl (80.0-96.0); MONO # 0.5 10^3/uL (0.0-0.8); MONO % 39.4 % (0.0-5.0); NEUTROPHILS % 34.4 % (36.0-66.0); PLATELET COUNT, AUTOMATED 118 10^3/uL (150-450); RED CELL DISTRIBUTION WIDTH 16.5 % (11.5-14.5); WHITE BLOOD COUNT 1.4 10^3/uL (4.0-10.0)
[2017-08-31 05:54] LABS: INR 0.99
[2017-08-31 06:00] VITALS: BP 168/70
[2017-08-31] MEDS: HEPARIN DRIP 25,000 UNITS in APPROPRIATE DILUENT 1 EA IV SCH (06:06)
[2017-08-31 06:09] LABS: ALBUMIN 2.8 GM/DL (3.2-5.2); ANION GAP 7 MEQ/L (8-16); BLOOD UREA NITROGEN 14 MG/DL (7-18); CALCIUM LEVEL 9.7 MG/DL (8.5-10.1); CARBON DIOXIDE LEVEL 30 MEQ/L (21-32); CHLORIDE LEVEL 103 MEQ/L (98-107); CREATININE FOR GFR 0.94 MG/DL (0.70-1.30); GLOMERULAR FILTRATION RATE > 60.0 (>56); GLUCOSE, FASTING 128 MG/DL (70-105); PHOSPHORUS LEVEL 3.9 MG/DL (2.5-4.9); POTASSIUM SERUM 3.5 MEQ/L (3.5-5.1); SODIUM LEVEL 140 MEQ/L (136-145)
[2017-08-31 06:37] LABS: NEUTROPHILS # 0.5 10^3/uL (1.8-7.7)
[2017-08-31] MEDS: diphenhydrAMINE 12.5MG/5ML ELIXIR UDC XX SCH ×4 (07:30→21:00)
[2017-08-31] MEDS: MAALOX 30 ML SUSP *UDC SSP SCH ×4 (07:30→21:00)
[2017-08-31] MEDS: HumaLOG INSULIN (NovoLOG) PER UNIT SC SCH ×4 (07:30→20:36)
[2017-08-31] MEDS ORDERED: WARFARIN SOD 5 MG TAB PO ONE (09:00)
[2017-08-31] MEDS: PANTOPRAZOLE 40MG TAB (PROTONIX) PO SCH (09:04)
[2017-08-31] MEDS: ATENOLOL 25 MG TAB PO SCH (09:05)
--- NOTE | 2017-08-31 11:32 | IPNPDOC ---
Date Seen The patient was seen on 08/31/17. Progress Note SUBJECTIVE: Patient is a 57 showed gentleman admitted a couple days ago for upper extremity DVT and pulmonary emboli. He's currently being bridged with heparin and Coumadin. He denies chest pain, shortness of breath, productive sputum, hemoptysis. He denies nausea, vomiting, diarrhea. He's tolerating oral intake. No issues with voiding or bowel movements. OBJECTIVE PHYSICAL EXAMINATION: VITAL SIGNS: Please see below. GENERAL: NAD, A&O X3 HEENT: PERRLA, Throat clear, neck supple CARDIOVASCULAR: RRR. RESPIRATORY: CTA BILATERALLY. ABDOMINAL: SOFT, NT/ND, NORMOACTIVE BS, NO REBOUND EXTREMITIES: NO EDEMA, NO TENDERNESS NEUROLOGICAL: CN II-XII GROSSLY INTACT NO DEFICITS PSYCHOLOGICAL: NEGATIVE LABORATORY DATA: Please see below. DVT prophylaxis ordered?: YES ASSESSMENT AND PLAN: This is a 57-year-old gentleman with left upper extremity DVT and pulmonary embolism. He'll be here for at least 5 days while we bridge him from heparin to Coumadin. PROBLEMS: 1. Pulmonary emboli: He scores class III on the PE severity index him each criteria for inpatient treatment. We'll continue with bridging heparin and Coumadin with goal INR 2-3 which will likely be achieved in the next 5DAYS. He missed last evenings dose of coumadin. Will give one time dose coumadin 5mg this morning and continue with 5mg daily starting this evening. (total dose today is 10mg) 2. Left UE DVT: As outlined above 3. Stage 4 Colon CA. Follows as outpt with Dr Garvin. Pt last received Chemo 2 weeks ago. Was due for chemo today but labs were reviewed as per Dr Garvin and this was postponed until 09/05/17. Pt is noted to be pancytopenic. Also monitor Q6 CBC as well. 4. Pancytopenia: likely secondary to recent chemo. ANC: 475 and offered neulasta. Appears afebrile and no signs of sepsis. will continue to follow. Check CBC with diff tomorrow and calculate ANC. 5. HTN. Continue Atenolol with hold parameters. Hold diuretic temporarily. 6. DM2. CC diet. Hold Trulicity/metformin. SSI. 7. HLD. Cont statin. 8. Anxiety: Stable. 9. DVT prophylaxis: Ridging with heparin and Coumadin with goal of therapy INR 2 -3 DISPOSITION: Patient will likely need to be here for at least 5 days. He is stable hemodynamically. Therefore, I will downgrade him to medical surgical floor on telemetry.. VS, I&O, 24H, Jasone Vital Signs/I&O Vital Signs Date Time Temp Pulse Resp B/P (MAP) Pulse Ox O2 Delivery O2 Flow Rate FiO2 08/31/17 09:05 78 168/70 08/31/17 06:00 97.5 20 96 08/30/17 22:10 Room Air Laboratory Data 24H LABS Laboratory Tests 2 08/30/17 11:30: Bedside Glucose (Misc Panel) 170H 08/30/17 12:12: Activated Partial Thromboplast Time 73.1H 08/30/17 16:55: Bedside Glucose (Misc Panel) 99 08/31/17 05:25: Activated Partial Thromboplast Time 67.4H, Immature Granulocyte % (Auto) 0.7H, White Blood Count 1.4L, Red Blood Count 3.58L, Hemoglobin 11.2L, Hematocrit 34.4L, Mean Corpuscular Volume 96.1H, Mean Corpuscular Hemoglobin 31.3, Mean Corpuscular Hemoglobin Concent 32.6, Red Cell Distribution Width 16.5H, Platelet Count 118L, Neutrophils (%) (Auto) 34.4L, Lymphocytes (%) (Auto) 21.9L , Monocytes (%) (Auto) 39.4H, Eosinophils (%) (Auto) 2.9, Basophils (%) (Auto) 0.7, Neutrophils # (Auto) 0.5L, Lymphocytes # (Auto) 0.3L, Monocytes # (Auto) 0.5, Eosinophils # (Auto) 0.0, Basophils # (Auto) 0.0, Immature Granulocyte # ( Auto) 0.0, Nucleated Red Blood Cells % (auto) 0.0, Prothrombin Time 13.2, Prothromb Time International Ratio 0.99, Blood Urea Nitrogen 14, Creatinine 0.94 , Sodium Level 140, Potassium Level 3.5, Chloride Level 103, Carbon Dioxide Level 30, Anion Gap 7L, Glomerular Filtration Rate > 60.0, Calcium Level 9.7, Phosphorus Level 3.9, Albumin 2.8L CBC/BMP Laboratory Tests 08/31/17 05:25 Red Blood Count 3.58 L, Mean Corpuscular Volume 96.1 H, Mean Corpuscular Hemoglobin 31.3, Mean Corpuscular Hemoglobin Concent 32.6, Red Cell Distribution Width 16.5 H, Neutrophils (%) (Auto) 34.4 L, Lymphocytes (%) (Auto ) 21.9 L, Monocytes (%) (Auto) 39.4 H, Eosinophils (%) (Auto) 2.9, Basophils (% ) (Auto) 0.7, Neutrophils # (Auto) 0.5 L, Lymphocytes # (Auto) 0.3 L, Monocytes # (Auto) 0.5, Eosinophils # (Auto) 0.0, Basophils # (Auto) 0.0, Anion Gap 7 L Microbiology Microbiology 08/30/17 Stool Occult Blood (JENNIE) - Final, Complete LEENA ALEJANDRA DO Aug 31, 2017 11:32
[2017-08-31] MEDS: amLODIPine 5 MG TAB PO SCH (13:01)
[2017-08-31 14:00] VITALS: BP 138/85
[2017-08-31] MEDS: WARFARIN SOD 5 MG TAB PO SCH (17:32)
[2017-08-31] MEDS: ATORVASTATIN 20 MG TAB PO SCH (21:22)
[2017-08-31 22:00] VITALS: BP 128/89
[2017-09-01] MEDS: HEPARIN DRIP 25,000 UNITS in APPROPRIATE DILUENT 1 EA IV SCH (03:30)
[2017-09-01 05:40] VITALS: BP 141/81
[2017-09-01 06:10] LABS: BASO % 0.7 % (0.0-1.0); EOS % 2.9 % (0.0-3.0); LYMPH # 0.3 10^3/uL (1.5-4.5); LYMPH % 21.7 % (24.0-44.0); MEAN CORPUSCULAR HEMOGLOBIN 31.7 pg (27.0-33.0); MEAN CORPUSCULAR HGB CONC 32.4 g/dl (32.0-36.5); MONO # 0.6 10^3/uL (0.0-0.8); MONO % 44.2 % (0.0-5.0); NEUTROPHILS % 30.5 % (36.0-66.0); PLATELET COUNT, AUTOMATED 126 10^3/uL (150-450); RED CELL DISTRIBUTION WIDTH 16.6 % (11.5-14.5); WHITE BLOOD COUNT 1.4 10^3/uL (4.0-10.0)
[2017-09-01 06:27] LABS: INR 1.23
[2017-09-01 06:28] LABS: ALBUMIN 2.8 GM/DL (3.2-5.2); ANION GAP 6 MEQ/L (8-16); BLOOD UREA NITROGEN 13 MG/DL (7-18); CALCIUM LEVEL 9.4 MG/DL (8.5-10.1); CARBON DIOXIDE LEVEL 30 MEQ/L (21-32); CHLORIDE LEVEL 104 MEQ/L (98-107); CREATININE FOR GFR 0.89 MG/DL (0.70-1.30); GLOMERULAR FILTRATION RATE > 60.0 (>56); GLUCOSE, FASTING 123 MG/DL (70-105); PHOSPHORUS LEVEL 3.1 MG/DL (2.5-4.9); POTASSIUM SERUM 3.6 MEQ/L (3.5-5.1); SODIUM LEVEL 140 MEQ/L (136-145)
[2017-09-01 06:47] LABS: NEUTROPHILS # 0.4 10^3/uL (1.8-7.7)
[2017-09-01] MEDS: HumaLOG INSULIN (NovoLOG) PER UNIT SC SCH ×4 (08:44→21:00)
[2017-09-01] MEDS: PANTOPRAZOLE 40MG TAB (PROTONIX) PO SCH (08:45)
[2017-09-01] MEDS: ATENOLOL 25 MG TAB PO SCH (08:46)
[2017-09-01] MEDS: amLODIPine 5 MG TAB PO SCH (08:47)
[2017-09-01] MEDS ORDERED: diphenhydrAMINE 25 MG CAP PO PRN (10:30)
--- NOTE | 2017-09-01 12:27 | IPNPDOC ---
Date Seen The patient was seen on 09/01/17. Progress Note SUBJECTIVE: Patient is a 57 showed gentleman admitted a couple days ago for upper extremity DVT and pulmonary emboli. He's currently being bridged with heparin and Coumadin. He denies chest pain, shortness of breath, productive sputum, hemoptysis. He denies nausea, vomiting, diarrhea. He's tolerating oral intake. No issues with voiding or bowel movements. Spoke to him regarding injection of neupogen today. OBJECTIVE PHYSICAL EXAMINATION: VITAL SIGNS: Please see below. GENERAL: No acute distress, alert and oriented 3] HEENT: [PERRLA. Throat clear. Neck supple, no JVD] CARDIOVASCULAR: [Regular rate and rhythm]. RESPIRATORY: [To auscultation bilaterally]. ABDOMINAL: [Soft, anteroseptal positive bowel sounds. No rebound] EXTREMITIES: [No edema, no calf tenderness] NEUROLOGICAL: [Cranial nerves II through XII grossly intact. No gross motor sensory deficits] PSYCHOLOGICAL: [Negative] LABORATORY DATA: Please see below. Calculated ANC 427 (was 475 yesterday...offerred neupogen injection) MICROBIOLOGY: Please see below. DVT prophylaxis ordered?: [Yes] ASSESSMENT AND PLAN: This is a 57-year-old gentleman with left upper extremity DVT and pulmonary embolism. He'll be here for at least 5 days while we bridge him from heparin to Coumadin. Drop noted in calculated ANC, s/p chemo. PROBLEMS: 1. Pulmonary emboli: He scores class III on the PE severity index him each criteria for inpatient treatment. We'll continue with bridging heparin and Coumadin with goal INR 2-3 which will likely be achieved in the next 5DAYS. INR appears to be moving toward goal. Will continue with 5mg daily and monitor INR as well PTT for bridging. 2. Left UE DVT: As outlined above 3. Stage 4 Colon CA. Follows as outpt with Dr Garvin. Pt last received Chemo 2 weeks ago. Was due for chemo today but labs were reviewed as per Dr Garvin and this was postponed until 09/05/17. Pt is noted to be pancytopenic. 4. Pancytopenia: likely secondary to recent chemo. ANC: 425 and agreeable to 2 days of neupogen injections. Appears afebrile and no signs of sepsis. will continue to follow. Check CBC with diff tomorrow and calculate ANC. 5. HTN. Continue Atenolol with hold parameters. Hold diuretic temporarily. 6. DM2. CC diet. SSI. Hold Trulicity/metformin; will resume at time of discharge. 7. HLD. Cont statin. 8. Anxiety: Stable. 9. DVT prophylaxis: Bridging with heparin and Coumadin with goal of therapy INR 2-3 DISPOSITION: Patient will likely need to be here for at least 5 days. He is stable hemodynamically. Downgraded off telemetry yesterday. VS, I&O, 24H, Fishbone Vital Signs/I&O Vital Signs Date Time Temp Pulse Resp B/P (MAP) Pulse Ox O2 Delivery O2 Flow Rate FiO2 09/01/17 10:19 Room Air 09/01/17 08:47 90 150/96 09/01/17 05:40 98.1 18 94 I&O- Last 24 Hours up to 6 AM 09/02/17 06:00 Intake Total 240 ml Output Total 0 ml Balance 240 ml Laboratory Data 24H LABS Laboratory Tests 2 08/31/17 16:59: Bedside Glucose (Misc Panel) 138H 08/31/17 20:10: Bedside Glucose (Misc Panel) 111H 09/01/17 05:28: Immature Granulocyte % (Auto) 0.0, White Blood Count 1.4L, Red Blood Count 3.53L , Hemoglobin 11.2L, Hematocrit 34.6L, Mean Corpuscular Volume 98.0H, Mean Corpuscular Hemoglobin 31.7, Mean Corpuscular Hemoglobin Concent 32.4, Red Cell Distribution Width 16.6H, Platelet Count 126L, Neutrophils (%) (Auto) 30.5L, Lymphocytes (%) (Auto) 21.7L, Monocytes (%) (Auto) 44.2H, Eosinophils (%) (Auto ) 2.9, Basophils (%) (Auto) 0.7, Neutrophils # (Auto) 0.4L, Lymphocytes # (Auto ) 0.3L, Monocytes # (Auto) 0.6, Eosinophils # (Auto) 0.0, Basophils # (Auto) 0.0 , Immature Granulocyte # (Auto) 0.0, Nucleated Red Blood Cells % (auto) 0.0, Prothrombin Time 15.7H, Prothromb Time International Ratio 1.23, Activated Partial Thromboplast Time 67.8H, Blood Urea Nitrogen 13, Creatinine 0.89, Sodium Level 140, Potassium Level 3.6, Chloride Level 104, Carbon Dioxide Level 30, Anion Gap 6L, Glomerular Filtration Rate > 60.0, Calcium Level 9.4, Phosphorus Level 3.1#, Albumin 2.8L 09/01/17 11:47: Bedside Glucose (Misc Panel) 137H CBC/BMP Laboratory Tests 09/01/17 05:28 Red Blood Count 3.53 L, Mean Corpuscular Volume 98.0 H, Mean Corpuscular Hemoglobin 31.7, Mean Corpuscular Hemoglobin Concent 32.4, Red Cell Distribution Width 16.6 H, Neutrophils (%) (Auto) 30.5 L, Lymphocytes (%) (Auto ) 21.7 L, Monocytes (%) (Auto) 44.2 H, Eosinophils (%) (Auto) 2.9, Basophils (% ) (Auto) 0.7, Neutrophils # (Auto) 0.4 L, Lymphocytes # (Auto) 0.3 L, Monocytes # (Auto) 0.6, Eosinophils # (Auto) 0.0, Basophils # (Auto) 0.0, Anion Gap 6 L Microbiology Microbiology 08/31/17 Stool Occult Blood (JENNIE) - Final, Complete 08/30/17 Stool Occult Blood (JENNIE) - Final, Complete LEENA ALEJANDRA DO Sep 01, 2017 12:27
[2017-09-01] MEDS: MAGIC MOUTHWASH SUSPENSION BTL SSP SCH ×2 (12:31→17:08)
[2017-09-01] MEDS: FILGRASTIM 300 MCG/0.5 ML SYRINGE (J1442) SC SCH (13:50)
[2017-09-01 14:00] VITALS: BP 111/69
[2017-09-01] MEDS: WARFARIN SOD 5 MG TAB PO SCH (17:08)
[2017-09-01] MEDS: ATORVASTATIN 20 MG TAB PO SCH (21:46)
[2017-09-01 22:00] VITALS: BP 142/80
[2017-09-02] MEDS: HEPARIN DRIP 25,000 UNITS in APPROPRIATE DILUENT 1 EA IV SCH ×2 (02:00→22:40)
[2017-09-02 05:38] LABS: BASO % 0.3 % (0.0-1.0); EOS # 0.1 10^3/uL (0.0-0.50); EOS % 2.4 % (0.0-3.0); LYMPH # 0.3 10^3/uL (1.5-4.5); LYMPH % 10.3 % (24.0-44.0); MEAN CORPUSCULAR HEMOGLOBIN 31.8 pg (27.0-33.0); MEAN CORPUSCULAR HGB CONC 32.3 g/dl (32.0-36.5); MEAN CORPUSCULAR VOLUME 98.2 fl (80.0-96.0); MONO # 1.1 10^3/uL (0.0-0.8); NEUTROPHILS # 1.5 10^3/uL (1.8-7.7); PLATELET COUNT, AUTOMATED 114 10^3/uL (150-450); RED CELL DISTRIBUTION WIDTH 16.7 % (11.5-14.5); WHITE BLOOD COUNT 2.9 10^3/uL (4.0-10.0)
[2017-09-02 05:57] LABS: INR 1.45
[2017-09-02 06:00] VITALS: BP 143/78
[2017-09-02 06:14] LABS: ALBUMIN 2.7 GM/DL (3.2-5.2); ANION GAP 7 MEQ/L (8-16); BLOOD UREA NITROGEN 11 MG/DL (7-18); CALCIUM LEVEL 8.9 MG/DL (8.5-10.1); CARBON DIOXIDE LEVEL 28 MEQ/L (21-32); CHLORIDE LEVEL 108 MEQ/L (98-107); CREATININE FOR GFR 0.88 MG/DL (0.70-1.30); GLOMERULAR FILTRATION RATE > 60.0 (>56); GLUCOSE, FASTING 109 MG/DL (70-105); PHOSPHORUS LEVEL 2.8 MG/DL (2.5-4.9); POTASSIUM SERUM 3.7 MEQ/L (3.5-5.1); SODIUM LEVEL 143 MEQ/L (136-145)
[2017-09-02] MEDS: HumaLOG INSULIN (NovoLOG) PER UNIT SC SCH ×4 (08:41→21:00)
[2017-09-02] MEDS: PANTOPRAZOLE 40MG TAB (PROTONIX) PO SCH (08:42)
[2017-09-02] MEDS: ATENOLOL 25 MG TAB PO SCH (08:43)
[2017-09-02] MEDS: amLODIPine 5 MG TAB PO SCH (08:43)
[2017-09-02] MEDS: MAGIC MOUTHWASH SUSPENSION BTL SSP SCH ×3 (08:44→17:06)
--- NOTE | 2017-09-02 08:49 | IPNPDOC ---
Date Seen The patient was seen on 09/02/17. Progress Note SUBJECTIVE: Patient is a pleasant 57 yo male with left arm DVT and PE. Hemodynamically has remained stable. Seen at bedside and no overnight issues. Denies: CP, SOB, N/V/D, hemoptysis or cough. BM's regular and voiding fine. Remains active walking periodically in hallways. c/o of having some "redness of legs earlier this morning that has now went away." OBJECTIVE PHYSICAL EXAMINATION: VITAL SIGNS: Please see below. GENERAL: [NAD, A&OX3] HEENT: [PERRLA, neck supple, throat clear, no JVD] CARDIOVASCULAR: [RRR]. RESPIRATORY: [CTA Bilaterally]. ABDOMINAL: [soft, NT/ND, normoactive bowesounds, no rebound] EXTREMITIES: [no edema, no tenderness] NEUROLOGICAL: [CNII-XII grossly intact no deficits] PSYCHOLOGICAL: [negative] LABORATORY DATA: Please see below. DVT prophylaxis ordered?: [yes] ASSESSMENT AND PLAN: This is a 57 yo with dvt/PE being bridged with heparin to Coumadin. No issues currently. PROBLEMS: 1. Pulmonary emboli: He scores class III on the PE severity index him each criteria for inpatient treatment. We'll continue with bridging heparin and Coumadin with goal INR 2-3 (today INR is 1.45) Will continue with current dose of 5mg daily Coumadin. 2. Left UE DVT: As outlined above 3. Stage 4 Colon CA. Follows as outpt with Dr Garvin. Pt last received Chemo 2 weeks ago. Was due for chemo today but labs were reviewed as per Dr Garvin and this was postponed until 09/05/17. Pt is noted to be pancytopenic. 4. Pancytopenia: likely secondary to recent chemo. ANC: 1450 and agreeable to 2 days of neupogen injections. Appears afebrile and no signs of sepsis. will continue to follow. Check CBC with diff tomorrow and calculate ANC. 5. HTN. Continue Atenolol with hold parameters. Resume diuretic. 6. DM2. CC diet. SSI. Hold Trulicity/metformin; will resume at time of discharge. 7. HLD. Cont statin. 8. Anxiety: Stable. 9. DVT prophylaxis: Bridging with heparin and Coumadin with goal of therapy INR 2-3 DISPOSITION: He is stable hemodynamically and anticipate home d/c beginning of week. VS, I&O, [facility] Vital Signs Date Time Temp Pulse Resp B/P (MAP) Pulse Ox O2 Delivery O2 Flow Rate FiO2 09/02/17 06:00 98.0 83 18 143/78 (99) 96 Room Air I&O- Last 24 Hours up to 6 AM 09/03/17 06:00 Intake Total 0 ml Output Total 0 ml Balance 0 ml Laboratory Data 24H LABS Laboratory Tests 2 09/01/17 11:47: Bedside Glucose (Misc Panel) 137H 09/01/17 16:44: Bedside Glucose (Misc Panel) 127H 09/01/17 21:24: Bedside Glucose (Misc Panel) 106H 09/02/17 05:21: Immature Granulocyte % (Auto) 1.0H, White Blood Count 2.9L, Red Blood Count 3.37L, Hemoglobin 10.7L, Hematocrit 33.1L, Mean Corpuscular Volume 98.2H, Mean Corpuscular Hemoglobin 31.8, Mean Corpuscular Hemoglobin Concent 32.3, Red Cell Distribution Width 16.7H, Platelet Count 114L, Neutrophils (%) (Auto) 50.0, Lymphocytes (%) (Auto) 10.3L, Monocytes (%) (Auto) 36.0H, Eosinophils (%) (Auto ) 2.4, Basophils (%) (Auto) 0.3, Neutrophils # (Auto) 1.5L, Lymphocytes # (Auto ) 0.3L, Monocytes # (Auto) 1.1H, Eosinophils # (Auto) 0.1, Basophils # (Auto) 0.0, Immature Granulocyte # (Auto) 0.0, Nucleated Red Blood Cells % (auto) 1.4H , Prothrombin Time 18.0H, Prothromb Time International Ratio 1.45, Activated Partial Thromboplast Time 77.0H, Blood Urea Nitrogen 11, Creatinine 0.88, Sodium Level 143, Potassium Level 3.7, Chloride Level 108H, Carbon Dioxide Level 28, Anion Gap 7L, Glomerular Filtration Rate > 60.0, Calcium Level 8.9, Phosphorus Level 2.8, Albumin 2.7L CBC/BMP Laboratory Tests 09/02/17 05:21 Red Blood Count 3.37 L, Mean Corpuscular Volume 98.2 H, Mean Corpuscular Hemoglobin 31.8, Mean Corpuscular Hemoglobin Concent 32.3, Red Cell Distribution Width 16.7 H, Neutrophils (%) (Auto) 50.0, Lymphocytes (%) (Auto) 10.3 L, Monocytes (%) (Auto) 36.0 H, Eosinophils (%) (Auto) 2.4, Basophils (%) ( Auto) 0.3, Neutrophils # (Auto) 1.5 L, Lymphocytes # (Auto) 0.3 L, Monocytes # ( Auto) 1.1 H, Eosinophils # (Auto) 0.1, Basophils # (Auto) 0.0, Anion Gap 7 L Microbiology Microbiology 09/01/17 Stool Occult Blood (JENNIE) - Final, Complete 08/31/17 Stool Occult Blood (JENNIE) - Final, Complete 08/30/17 Stool Occult Blood (JENNIE) - Final, Complete LEENA ALEJANDRA DO Sep 02, 2017 08:49
[2017-09-02] MEDS: FILGRASTIM 300 MCG/0.5 ML SYRINGE (J1442) SC SCH (10:32)
[2017-09-02] MEDS: LOSARTAN 25 MG TAB PO SCH (10:33)
[2017-09-02] MEDS: DYAZIDE 37.5/25 CAP (TRIAM/HCTZ) PO SCH (10:34)
[2017-09-02 14:00] VITALS: BP 115/77
[2017-09-02] MEDS: WARFARIN SOD 5 MG TAB PO SCH (17:05)
[2017-09-02] MEDS: ATORVASTATIN 20 MG TAB PO SCH (20:34)
[2017-09-02 22:00] VITALS: BP 138/87
[2017-09-03 06:00] VITALS: BP 137/73
[2017-09-03 06:26] LABS: MEAN CORPUSCULAR HEMOGLOBIN 31.8 pg (27.0-33.0); MEAN CORPUSCULAR HGB CONC 32.2 g/dl (32.0-36.5); MEAN CORPUSCULAR VOLUME 98.9 fl (80.0-96.0); PLATELET COUNT, AUTOMATED 130 10^3/uL (150-450); RED CELL DISTRIBUTION WIDTH 17.1 % (11.5-14.5); WHITE BLOOD COUNT 6.6 10^3/uL (4.0-10.0)
[2017-09-03 06:34] LABS: INR 1.68
[2017-09-03 06:35] LABS: ALBUMIN 2.7 GM/DL (3.2-5.2); ANION GAP 8 MEQ/L (8-16); BLOOD UREA NITROGEN 8 MG/DL (7-18); CALCIUM LEVEL 8.6 MG/DL (8.5-10.1); CARBON DIOXIDE LEVEL 25 MEQ/L (21-32); CHLORIDE LEVEL 108 MEQ/L (98-107); CREATININE FOR GFR 0.92 MG/DL (0.70-1.30); GLOMERULAR FILTRATION RATE > 60.0 (>56); GLUCOSE, FASTING 90 MG/DL (70-105); PHOSPHORUS LEVEL 3.3 MG/DL (2.5-4.9); POTASSIUM SERUM 3.6 MEQ/L (3.5-5.1); SODIUM LEVEL 141 MEQ/L (136-145)
[2017-09-03 06:40] LABS: ADD MANUAL DIFFER YES; DIFF SLIDE NUMBER 29; LEFT SHIFT POS FLAG; WBC SCAT POS FLAG
[2017-09-03] MEDS: HumaLOG INSULIN (NovoLOG) PER UNIT SC SCH ×4 (07:30→21:00)
[2017-09-03 07:54] LABS: BANDS 6 % (< 11); EOSINOPHILS 2 % (0-5)
[2017-09-03 07:55] LABS: POLYCHROMASIA 2+
[2017-09-03] MEDS: LOSARTAN 25 MG TAB PO SCH (09:18)
[2017-09-03] MEDS: PANTOPRAZOLE 40MG TAB (PROTONIX) PO SCH (09:19)
[2017-09-03] MEDS: MAGIC MOUTHWASH SUSPENSION BTL SSP SCH ×3 (09:19→17:34)
[2017-09-03] MEDS: ATENOLOL 25 MG TAB PO SCH (09:19)
[2017-09-03] MEDS: DYAZIDE 37.5/25 CAP (TRIAM/HCTZ) PO SCH (09:19)
--- NOTE | 2017-09-03 11:22 | IPNPDOC ---
Date Seen The patient was seen on 09/03/17. Progress Note SUBJECTIVE: Patient is a 57 yo male without overnight issues. Denies: CP, SOB, prod cough, hemoptysis, n/v/d, f/c/r. Voiding fine and BMs regular. OBJECTIVE PHYSICAL EXAMINATION: VITAL SIGNS: Please see below. GENERAL: NAD, A&OX3 HEENT: PERRLA, throat clear, neck supple, no JVD CARDIOVASCULAR: RRR. RESPIRATORY: CTA bilaterally. ABDOMINAL: soft, NT/ND, normoactive bowel sounds, no rebound EXTREMITIES: no edema, no calf tenderness NEUROLOGICAL: CN II-XII grossly intact no deficits PSYCHOLOGICAL: negative LABORATORY DATA: Please see below. DVT prophylaxis ordered?: yes ASSESSMENT AND PLAN: This is a 57 yo male with left arm DVT and PE being bridged to Coumadin. PROBLEMS: 1. Pulmonary emboli: He scores class III on the PE severity index him each criteria for inpatient treatment. Continue with recommendations by Dr. Garvin: We'll continue with bridging heparin and Coumadin with goal INR 2-3 (today INR is 1.45) Will continue with current dose of 5mg daily Coumadin. 2. Left UE DVT: As outlined above 3. Stage 4 Colon CA. Follows as outpt with Dr Garvin. Pt last received > Chemo 2 weeks ago. Was due for chemo today but labs were reviewed as per Dr Garvin and this was postponed until 09/05/17. Pt is noted to be pancytopenic. 4. Pancytopenia: likely secondary to recent chemo. ANC: 1450 yesterday and finished to 2 days of neupogen injections. His current wbc is 6.6. Can follow up out patient with heme/onc. Appears afebrile and no signs of sepsis. will continue to follow. 5. HTN: stable 6. DM2. CC diet. SSI. Hold Trulicity/metformin; will resume at time of discharge. 7. HLD. Cont statin. 8. Anxiety: Stable. 9. DVT prophylaxis: Bridging with heparin and Coumadin with goal of therapy INR 2-3 DISPOSITION: He is stable hemodynamically and anticipate home d/c beginning of week. VS, I&O, 24H, Fishbone Vital Signs/I&O Vital Signs Date Time Temp Pulse Resp B/P (MAP) Pulse Ox O2 Delivery O2 Flow Rate FiO2 09/03/17 09:19 68 137/73 09/03/17 09:00 Room Air 09/03/17 06:00 98.1 18 92 I&O- Last 24 Hours up to 6 AM 09/04/17 06:00 Intake Total 306 ml Output Total 350 ml Balance -44 ml Laboratory Data 24H LABS Laboratory Tests 2 09/02/17 11:38: Bedside Glucose (Misc Panel) 91 09/02/17 16:53: Bedside Glucose (Misc Panel) 144H 09/02/17 19:36: Bedside Glucose (Misc Panel) 110H 09/03/17 05:20: Nucleated Red Blood Cells % (auto) 1.5H, Neutrophils 60, Band Neutrophils 6, Lymphocytes (Manual) 10L, Monocytes (Manual) 19H, Eosinophils (Manual) 2, Metamyelocytes 1H, Atypical Lymphocytes 2, Platelet Estimate DECREASED, Polychromasia 2+, Prothrombin Time 20.3H, Prothromb Time International Ratio 1.68, Activated Partial Thromboplast Time 101.8H, Blood Urea Nitrogen 8, Creatinine 0.92, Sodium Level 141, Potassium Level 3.6, Chloride Level 108H, Carbon Dioxide Level 25, Anion Gap 8, Glomerular Filtration Rate > 60.0, Calcium Level 8.6, Phosphorus Level 3.3, Albumin 2.7L CBC/BMP Laboratory Tests 09/03/17 05:20 Red Blood Count 3.49 L, Mean Corpuscular Volume 98.9 H, Mean Corpuscular Hemoglobin 31.8, Mean Corpuscular Hemoglobin Concent 32.2, Red Cell Distribution Width 17.1 H, Anion Gap 8 Microbiology Microbiology 09/03/17 Stool Occult Blood (JENNIE), Received Pending 09/02/17 Stool Occult Blood (JENNIE) - Final, Complete 09/01/17 Stool Occult Blood (JENNIE) - Final, Complete 08/31/17 Stool Occult Blood (JENNIE) - Final, Complete 08/30/17 Stool Occult Blood (JENNIE) - Final, Complete LEENA ALEJANDRA DO Sep 03, 2017 11:22
[2017-09-03 14:00] VITALS: BP 138/83
[2017-09-03] MEDS: WARFARIN SOD 5 MG TAB PO SCH (17:33)
[2017-09-03] MEDS: ATORVASTATIN 20 MG TAB PO SCH (20:16)
[2017-09-03] MEDS: HEPARIN DRIP 25,000 UNITS in APPROPRIATE DILUENT 1 EA IV SCH (20:21)
[2017-09-03 22:00] VITALS: BP 132/80
[2017-09-04 06:00] VITALS: BP 137/75
[2017-09-04 06:20] LABS: MEAN CORPUSCULAR HEMOGLOBIN 31.8 pg (27.0-33.0); MEAN CORPUSCULAR HGB CONC 32.1 g/dl (32.0-36.5); MEAN CORPUSCULAR VOLUME 99.1 fl (80.0-96.0); PLATELET COUNT, AUTOMATED 125 10^3/uL (150-450); RED CELL DISTRIBUTION WIDTH 17.2 % (11.5-14.5); WHITE BLOOD COUNT 8.7 10^3/uL (4.0-10.0)
[2017-09-04 06:30] LABS: INR 1.79
[2017-09-04 06:31] LABS: LEFT SHIFT POS FLAG; POSITIVE DIFF POS FLAG; POSITIVE MORPH POS FLAG; WBC SCAT POS FLAG
[2017-09-04 06:32] LABS: ADD MANUAL DIFFER YES; ALBUMIN 2.9 GM/DL (3.2-5.2); ANION GAP 7 MEQ/L (8-16); BLOOD UREA NITROGEN 11 MG/DL (7-18); CALCIUM LEVEL 9.2 MG/DL (8.5-10.1); CARBON DIOXIDE LEVEL 29 MEQ/L (21-32); CHLORIDE LEVEL 105 MEQ/L (98-107); CREATININE FOR GFR 0.92 MG/DL (0.70-1.30); DIFF SLIDE NUMBER 34; GLOMERULAR FILTRATION RATE > 60.0 (>56); GLUCOSE, FASTING 114 MG/DL (70-105); PHOSPHORUS LEVEL 3.6 MG/DL (2.5-4.9); POTASSIUM SERUM 3.6 MEQ/L (3.5-5.1); SODIUM LEVEL 141 MEQ/L (136-145)
[2017-09-04] MEDS: MAGIC MOUTHWASH SUSPENSION BTL SSP SCH ×3 (07:30→16:11)
[2017-09-04 07:42] LABS: BANDS 2 % (< 11)
[2017-09-04 07:44] LABS: POLYCHROMASIA 2+
[2017-09-04] MEDS: HumaLOG INSULIN (NovoLOG) PER UNIT SC SCH ×4 (08:13→20:57)
[2017-09-04] MEDS: ATENOLOL 25 MG TAB PO SCH (08:16)
[2017-09-04] MEDS: LOSARTAN 25 MG TAB PO SCH (08:16)
[2017-09-04] MEDS: DYAZIDE 37.5/25 CAP (TRIAM/HCTZ) PO SCH (08:16)
[2017-09-04] MEDS: PANTOPRAZOLE 40MG TAB (PROTONIX) PO SCH (08:17)
[2017-09-04 14:00] VITALS: BP 128/66
--- NOTE | 2017-09-04 14:39 | IPN ---
DATE: 09/04/2017 Vincent's INR is still subtherapeutic, it is 1.8, which is getting close. He is on IV heparin and oral warfarin. He denies any chest pain or shortness of breath. PHYSICAL EXAMINATION: VITAL SIGNS: Stable. LUNGS: Clear. HEART: Regular rhythm. ABDOMEN: Soft, nontender. EXTREMITIES: No peripheral edema. INR 1.79. BMP unremarkable. CBC shows stable hemoglobin. IMPRESSION AND PLAN: Pulmonary emboli. He is on IV heparin and warfarin. He has been slow to anticoagulate with the warfarin. I will give him 7.5 mg today. If his INR is greater and 3, we expect he can be discharged tomorrow. The rest of his medical problems are stable, as outlined yesterday.
[2017-09-04] MEDS ORDERED: WARFARIN SOD 7.5 MG TAB PO ONE (17:00)
[2017-09-04] MEDS: HEPARIN DRIP 25,000 UNITS in APPROPRIATE DILUENT 1 EA IV SCH (17:29)
[2017-09-04] MEDS: ATORVASTATIN 20 MG TAB PO SCH (20:05)
[2017-09-04 22:00] VITALS: BP 137/78
[2017-09-05 06:00] VITALS: BP 131/79
[2017-09-05 06:16] LABS: MEAN CORPUSCULAR HEMOGLOBIN 31.2 pg (27.0-33.0); MEAN CORPUSCULAR HGB CONC 31.8 g/dl (32.0-36.5); MEAN CORPUSCULAR VOLUME 98.1 fl (80.0-96.0); PLATELET COUNT, AUTOMATED 125 10^3/uL (150-450); RED CELL DISTRIBUTION WIDTH 16.7 % (11.5-14.5); WHITE BLOOD COUNT 8.2 10^3/uL (4.0-10.0)
[2017-09-05 06:18] LABS: LEFT SHIFT POS FLAG; POS COUNT POS FLAG; POSITIVE MORPH POS FLAG; WBC SCAT POS FLAG
[2017-09-05 06:19] LABS: ADD MANUAL DIFFER YES; DIFF SLIDE NUMBER 14
[2017-09-05 06:43] LABS: ANION GAP 8 MEQ/L (8-16); BLOOD UREA NITROGEN 11 MG/DL (7-18); CALCIUM LEVEL 9.6 MG/DL (8.5-10.1); CARBON DIOXIDE LEVEL 27 MEQ/L (21-32); CHLORIDE LEVEL 104 MEQ/L (98-107); CREATININE FOR GFR 0.88 MG/DL (0.70-1.30); GLOMERULAR FILTRATION RATE > 60.0 (>56); GLUCOSE, FASTING 110 MG/DL (70-105); POTASSIUM SERUM 3.7 MEQ/L (3.5-5.1); SODIUM LEVEL 139 MEQ/L (136-145)
[2017-09-05 07:15] LABS: BANDS 5 % (< 11); EOSINOPHILS 1 % (0-5)
[2017-09-05 07:16] LABS: ANISOCYTOSIS 1+
[2017-09-05 07:17] LABS: POLYCHROMASIA 1+
[2017-09-05] MEDS: HumaLOG INSULIN (NovoLOG) PER UNIT SC SCH (07:39)
[2017-09-05] MEDS: MAGIC MOUTHWASH SUSPENSION BTL SSP SCH ×3 (07:39→17:06)
[2017-09-05 08:38] LABS: INR 1.89
[2017-09-05 08:48] VITALS: BP 152/94
[2017-09-05] MEDS: PANTOPRAZOLE 40MG TAB (PROTONIX) PO SCH (09:39)
[2017-09-05] MEDS: LOSARTAN 25 MG TAB PO SCH (09:39)
[2017-09-05] MEDS: DYAZIDE 37.5/25 CAP (TRIAM/HCTZ) PO SCH (09:39)
[2017-09-05] MEDS: ATENOLOL 25 MG TAB PO SCH (09:40)
--- NOTE | 2017-09-05 10:33 | IPN ---
DATE: 09/05/2017 I planned to send Vincent home today, unfortunately his INR is subtherapeutic and he has a history of pulmonary embolism and upper extremity deep vein thrombosis (DVT) and so it would not be safe to discharge him until he as at least a day, preferably two days, of therapeutic INR. He feels about the same as he did yesterday. No significant shortness of breath. PHYSICAL EXAMINATION: 1252/94, pulse 56, 97% oxygen saturation on room air. HEENT: Unremarkable. LUNGS: Clear. HEART: Regular rhythm. ABDOMEN: Obese, nontender. EXTREMITIES: Trace peripheral edema. LABORATORY DATA: INR is 1.89. White count 8.2, hemoglobin 11.2, platelets 125. Sodium 139, potassium 3.2, BUN 11, creatinine 0.8, PT is being followed per protocol. Blood sugars are all under good control. IMPRESSION: 1. Pulmonary embolisms/upper extremity deep vein thromboses. Continue heparin drip per protocol. Give a higher dose of warfarin again today. At this point, his INR is not therapeutic today. Hopefully it will be therapeutic and decision can be made about discharge tomorrow or the next day. 2. Diabetes. He is on Trulicity and metformin at home. His insulin requirements have been scant in the hospital so I am stopping his fingersticks and coverage. He is only getting a few units a day. Would probably restart Trulicity and metformin on discharge, as it will help with weight control and should not cause hypoglycemia, even with normal blood sugars. 3. Hypertension. Blood pressure is under good control. 4. Hyperlipidemia. Continue statin therapy. 5. Stage IV colon cancer. Treatment through Dr. Garvin. Dr. Mera will be assuming the patient's care tomorrow.
[2017-09-05] MEDS: HEPARIN DRIP 25,000 UNITS in APPROPRIATE DILUENT 1 EA IV SCH (12:55)
[2017-09-05 14:43] VITALS: BP 138/84
[2017-09-05] MEDS ORDERED: WARFARIN SOD 7.5 MG TAB PO ONE (17:00)
[2017-09-05] MEDS: ATORVASTATIN 20 MG TAB PO SCH (20:13)
[2017-09-05 22:00] VITALS: BP 141/80
[2017-09-06 01:18] LABS: INR 2.3
[2017-09-06 06:00] VITALS: BP 140/73
[2017-09-06 06:12] LABS: MEAN CORPUSCULAR HEMOGLOBIN 31.9 pg (27.0-33.0); MEAN CORPUSCULAR HGB CONC 32.4 g/dl (32.0-36.5); MEAN CORPUSCULAR VOLUME 98.6 fl (80.0-96.0); PLATELET COUNT, AUTOMATED 100 10^3/uL (150-450); RED CELL DISTRIBUTION WIDTH 16.8 % (11.5-14.5); WHITE BLOOD COUNT 6.3 10^3/uL (4.0-10.0)
[2017-09-06 06:14] LABS: ADD MANUAL DIFFER YES; DIFF SLIDE NUMBER 7; LEFT SHIFT POS FLAG; POS COUNT POS FLAG; POSITIVE MORPH POS FLAG; WBC SCAT POS FLAG
[2017-09-06 06:31] LABS: ALBUMIN 2.9 GM/DL (3.2-5.2); ANION GAP 7 MEQ/L (8-16); BLOOD UREA NITROGEN 14 MG/DL (7-18); CALCIUM LEVEL 9.3 MG/DL (8.5-10.1); CARBON DIOXIDE LEVEL 26 MEQ/L (21-32); CHLORIDE LEVEL 106 MEQ/L (98-107); GLOMERULAR FILTRATION RATE > 60.0 (>56); GLUCOSE, FASTING 116 MG/DL (70-105); POTASSIUM SERUM 3.9 MEQ/L (3.5-5.1); SODIUM LEVEL 139 MEQ/L (136-145)
[2017-09-06 06:43] LABS: BANDS 3 % (< 11); EOSINOPHILS 2 % (0-5)
[2017-09-06 06:45] LABS: TEAR DROP CELLS 1+
[2017-09-06] MEDS: MAGIC MOUTHWASH SUSPENSION BTL SSP SCH (07:30)
[2017-09-06] MEDS: ATENOLOL 25 MG TAB PO SCH (08:36)
[2017-09-06] MEDS: DYAZIDE 37.5/25 CAP (TRIAM/HCTZ) PO SCH (08:36)
[2017-09-06] MEDS: PANTOPRAZOLE 40MG TAB (PROTONIX) PO SCH (08:36)
[2017-09-06 08:37] VITALS: BP 140/87
[2017-09-06] MEDS: LOSARTAN 25 MG TAB PO SCH (08:37)
[2017-09-06] MEDS ORDERED: COUM2.5T17 PO (12:05)
[2017-09-06 14:00] VITALS: BP 122/74
--- NOTE | 2017-09-06 18:31 | DSES ---
DATE OF ADMISSION: 08/29/2017 DATE OF DISCHARGE: 09/06/2017 ONCOLOGIST: Dr. Garvin PRIMARY CARE PROVIDER: OSWALDO Godwin DISCHARGE DIAGNOSES: 1. Pulmonary embolism. 2. Deep vein thrombosis (DVT). 3. Stage IV colon cancer. 4. Pancytopenia. 5. Hypertension. 6. Diabetes, type 2, 7. Dyslipidemia. 8. Anxiety. HISTORY OF PRESENT ILLNESS: This is a 57-year-old male patient with underlying medical history of stage IV colon cancer, follows with Dr. Garvin, receiving chemotherapy, was noted 08/01/2017 to have left upper extremity superficial venous thrombosis as per Dr. Garvin, and stated that right upper extremity edema and erythema resolved, and for the past month, he has noted shortness of breath, lightheadedness, dizziness, and easily fatigued. He spoke to Dr. Garvin and was referred for testing which was completed and was referred to the emergency room for evaluation and management. Denies any fevers, chills, headache, chest pain, coughing, palpitations, abdominal pain, diarrhea, nausea, vomiting, or change in bowel habits. reported the patient is known to have blood in the stool. HOSPITAL COURSE: The patient was admitted to the hospital for deep vein thrombosis (DVT) and pulmonary embolism (PE), started on a heparin drip, bridging to Coumadin after discussion with Dr. Garvin. The patient's partial thromboplastin time (PTT) was followed. Fecal occult was done and was negative. The patient's international normalized ratio (INR) was followed and the patient's hemoglobin and hematocrit was followed and was stable during the hospital course. The patient currently has therapeutic INR. Heparin drip was discontinued. The patient tolerated oral with no acute distress. Ready for discharge for further care. VITAL SIGNS: Temperature 97.1, pulse 65, respiratory rate 16, blood pressure 122/74, pulse oximetry 97% on room air. GENERAL: The patient is alert and oriented times three, obese, in no acute distress. HEENT: Normocephalic, atraumatic. PULMONARY: Bilaterally clear to auscultation. CARDIAC: Regular rate and rhythm with normal S1, S2. ABDOMEN: Obese, soft, nontender. Positive bowel sounds. EXTREMITIES: Trace edema of bilateral lower extremities. LABORATORY DATA: WBC 6.3, hemoglobin and hematocrit 11.5/35.5, platelets 100. Chemistry: Sodium 139, potassium 3.9, chloride 106, bicarbonate 26, BUN 14, creatinine 1. DISCHARGE MEDICATIONS: - Coumadin 5 mg by mouth daily, check international normalized ratio (INR) in two days - atenolol 25 mg by mouth daily - Lipitor 40 mg by mouth at bedtime - Avastin injection every two weeks - dexamethasone 5 mg by mouth as directed - fluorouracil injection every two weeks as per oncology - hydrochlorothiazide with triamterine 37.5/25 mg one tablet by mouth daily - leucovorin injection intramuscular (IM) every two weeks - lidocaine cream as directed - losartan 25 mg by mouth daily - metformin 500 mg by mouth daily - Zofran 8 mg by mouth twice a day as needed - oxaliplatin 50 mg injection every two weeks - Protonix 40 mg by mouth daily - prochlorperazine 10 mg by mouth every six hours as needed - Trulicity 0.75 mg subcutaneous every week DISCHARGE INSTRUCTIONS: The patient is instructed to followup with OSWALDO Godwin in 2-3 days, followup international normalized ratio (INR) in two days, dosage as per primary care provider, followup with oncology in one week, return to the hospital if symptoms worsen.
== END 2017-09-06 14:40 | disposition home or self-care (01) | DRG 134 ==
LOC: M ED 11:36 → M ED INP 14:49 → M PCU 21:53 → M MSPAV 08-30 22:04
PROVIDERS: ADMIT Internal Medicine; ATTEND Hospitalist
DX: I26.99 Other pulmonary embolism without acute cor pulmonale (principal); D61.810 Antineoplastic chemotherapy induced pancytopenia; C18.9 Malignant neoplasm of colon, unspecified; Z68.41 Body mass index [BMI] 40.0-44.9, adult; E66.9 Obesity, unspecified; I82.612 Acute embolism and thrombosis of superficial veins of left upper extremity; Z92.21 Personal history of antineoplastic chemotherapy; I10 Essential (primary) hypertension; E78.5 Hyperlipidemia, unspecified; E11.9 Type 2 diabetes mellitus without complications; F41.9 Anxiety disorder, unspecified; Z98.52 Vasectomy status; Z79.82 Long term (current) use of aspirin; Z79.84 Long term (current) use of oral hypoglycemic drugs; Z88.8 Allergy status to other drugs, medicaments and biological substances; Z79.899 Other long term (current) drug therapy

== ENCOUNTER → 2017-08-29 | Outpatient (CLI) | payer BC, OTHER ==
[~2017-08-29] MED LIST changes: +ISOVUE-370 76% 100ML VIAL (Q9967) As Ordered ONE
--- NOTE | 2017-08-29 10:45 | REP ---
CT pulmonary angiogram: With IV contrast. History: Metastatic colon carcinoma with shortness of breath. Question pulmonary embolus. Comparison studies: Comparison chest CT study June 20, 2017. Contrast dose: 75 cc's of Isovue [address] technique: Helical scanning is acquired and overlapping 1.5 mm and contiguous 3 mm axial images are reformatted. In addition, a 3-D work station is deployed to generate thick slab maximum intensity projection images in sagittal and coronal imaging projections. CT pulmonary angiographic findings: There is good opacification of the pulmonary arterial tree. There are bilateral moderate size filling defects in the pulmonary arterial tree consistent with pulmonary emboli. This is fairly large on the right and involves the central right main pulmonary artery and the right upper and lower lobe pulmonary arterial branches. There is a lower lobe thrombus visible on the left. The thoracic aorta enhances homogeneously and is normal in contour and caliber. No hilar or mediastinal mass or adenopathy is seen. No pleural or pericardial effusion is seen. There is a curvilinear 5 mm opacity in the right lower lobe superior segment. This is unchanged from the June 20, [address] It is also unchanged from July 18, 2016. No new pulmonary nodule is seen. No infiltrate is noted. Impression: Moderate bilateral pulmonary emboli right greater than left. Signed by Johnny Lu MD 08/29/2017 05:27 P
--- NOTE | 2017-08-29 11:22 | REP ---
Left upper extremity deep vein duplex ultrasound for deep vein thrombus: Comparison is a 08/01. 2016. On the comparison study. There is deep vein thrombus in the mid to distal left basilic vein. The study identifies extension of the deep vein thrombus e into the left axillary vein. In the basilic vein there is now a trace of vascular flow indicating that the thrombus in the basilic vein as now nonocclusive. Signed by Eleazar Orozco MD 08/29/2017 11:14 A
== END ==
LOC: M RAD 09:51
PROVIDERS: ATTEND Internal Medicine Medical Oncology
DX: C61 Malignant neoplasm of prostate (principal); R06.02 Shortness of breath; I26.99 Other pulmonary embolism without acute cor pulmonale
CPT/HCPCS: 71275; 93971; Q9967

== ENCOUNTER → 2017-09-08 | Outpatient (REF) | payer OTHER ==
[~2017-09-08] MED LIST changes: +AVASINJ2 IV; +COUM2.5T17 PO; +DEXA4TA PO; +LIDO1CRE14 TOP; +LOSA25TA8 PO; +OMEG100011 PO; +PANT40TA2 PO; +PROC10TA PO; +TRIA37.5 PO; +ZOFR8TAB PO; +[UNRECOGNIZED DRUG - CODE] IM; +[UNRECOGNIZED DRUG - CODE] IV; +[UNRECOGNIZED DRUG - CODE] IV
[2017-09-08 12:47] LABS: INR 2.04
== END ==
LOC: M SFHCADAM 09:45
PROVIDERS: ATTEND Family Medicine
DX: I26.99 Other pulmonary embolism without acute cor pulmonale (principal); I82.A12 Acute embolism and thrombosis of left axillary vein; C18.9 Malignant neoplasm of colon, unspecified

== ENCOUNTER → 2017-09-11 | Outpatient (REF) | payer OTHER | LOC: M LAB REF 16:14 | PROVIDERS: ATTEND Internal Medicine Medical Oncology | DX: C18.9 Malignant neoplasm of colon, unspecified (principal) ==

== ENCOUNTER → 2017-09-14 | Outpatient (REF) | payer OTHER ==
[2017-09-14 13:56] LABS: INR 2.04
== END ==
LOC: M SFHCLACO 10:10
PROVIDERS: ATTEND Physician Assistant
DX: Z51.81 Encounter for therapeutic drug level monitoring (principal); Z79.01 Long term (current) use of anticoagulants

== ENCOUNTER → 2017-09-28 | Outpatient (REF) | payer OTHER ==
[2017-09-28 10:11] LABS: INR 1.44
== END ==
LOC: M SFHCLACO 09:42
PROVIDERS: ATTEND Physician Assistant
DX: Z79.01 Long term (current) use of anticoagulants (principal)

== ENCOUNTER → 2017-10-09 | Outpatient (REF) | payer OTHER ==
[2017-10-09 12:33] LABS: INR 1.22
== END ==
LOC: M SFHCLACO 11:24
PROVIDERS: ATTEND Physician Assistant
DX: I26.99 Other pulmonary embolism without acute cor pulmonale (principal); Z79.01 Long term (current) use of anticoagulants

== ENCOUNTER → 2017-10-24 | Outpatient (REF) | payer OTHER ==
[2017-10-24 16:09] LABS: INR 1.53
== END ==
LOC: M SFHCLACO 15:33
PROVIDERS: ATTEND Physician Assistant
DX: I82.A12 Acute embolism and thrombosis of left axillary vein (principal); Z51.81 Encounter for therapeutic drug level monitoring; Z79.01 Long term (current) use of anticoagulants

== ENCOUNTER → 2017-11-07 | Outpatient (REF) | payer OTHER ==
[2017-11-07 15:03] LABS: INR 1.86
== END ==
LOC: M SFHCLACO 14:36
PROVIDERS: ATTEND Physician Assistant
DX: I26.99 Other pulmonary embolism without acute cor pulmonale (principal); Z79.01 Long term (current) use of anticoagulants

== ENCOUNTER → 2017-11-16 | Outpatient (REF) | payer OTHER ==
[2017-11-16 15:09] LABS: INR 1.78
== END ==
LOC: M SFHCLACO 14:43
DX: I26.99 Other pulmonary embolism without acute cor pulmonale (principal); Z79.01 Long term (current) use of anticoagulants

== ENCOUNTER → 2017-11-21 | Outpatient (REF) | payer OTHER ==
[2017-11-21 15:34] LABS: INR 1.49; PROTHROMBIN TIME 18.4 SECONDS (12.4-14.5)
== END ==
LOC: M SFHCLACO 14:58
DX: I26.99 Other pulmonary embolism without acute cor pulmonale (principal); Z79.01 Long term (current) use of anticoagulants

== ENCOUNTER → 2017-11-28 | Outpatient (REF) | payer OTHER ==
[2017-11-28 16:34] LABS: INR 4.28; PROTHROMBIN TIME 43.4 SECONDS (12.4-14.5)
== END ==
LOC: M SFHCLACO 15:42
DX: Z79.01 Long term (current) use of anticoagulants (principal); I26.99 Other pulmonary embolism without acute cor pulmonale

== ENCOUNTER → 2017-12-05 | Outpatient (REF) | payer OTHER ==
[2017-12-05 17:04] LABS: PROTHROMBIN TIME 68.2 SECONDS (12.4-14.5)
[2017-12-05 17:53] LABS: INR 7.46
== END ==
LOC: M SFHCLACO 16:07
DX: Z51.81 Encounter for therapeutic drug level monitoring (principal); Z79.01 Long term (current) use of anticoagulants; I26.99 Other pulmonary embolism without acute cor pulmonale

== ENCOUNTER → 2017-12-07 | Outpatient (REF) | payer OTHER | LOC: M SFHCLACO 11:14 | DX: R53.0 Neoplastic (malignant) related fatigue (principal); R17 Unspecified jaundice; R63.4 Abnormal weight loss ==

== ENCOUNTER → 2018-01-30 | Outpatient (REF) | payer OTHER ==
[2018-01-30 15:31] LABS: ALBUMIN 3.1 GM/DL (3.2-5.2); ALBUMIN/GLOBULIN RATIO 0.78 (1.00-1.93); ALKALINE PHOSPHATASE 280 U/L (45-117); ALT/SGPT 64 U/L (12-78); ANION GAP 6 MEQ/L (8-16); AST/SGOT 48 U/L (7-37); BLOOD UREA NITROGEN 12 MG/DL (7-18); CALCIUM LEVEL 9.1 MG/DL (8.5-10.1); CARBON DIOXIDE LEVEL 28 MEQ/L (21-32); CHLORIDE LEVEL 106 MEQ/L (98-107); CHOLESTEROL LEVEL 145 MG/DL (<200); CHOLESTEROL RISK RATIO 2.788 (<5); CREATININE FOR GFR 0.92 MG/DL (0.70-1.30); GLOMERULAR FILTRATION RATE > 60.0 (>56); GLUCOSE, FASTING 83 MG/DL (70-100); HDL CHOLESTEROL 52 MG/DL (>40); NON-HDL-C 93 MG/DL; POTASSIUM SERUM 3.8 MEQ/L (3.5-5.1); SODIUM LEVEL 140 MEQ/L (136-145); TOTAL PROTEIN 7.1 GM/DL (6.4-8.2); TRIGLYCERIDES LEVEL 120 MG/DL (<150)
[2018-01-30 15:56] LABS: ESTIMATED AVERAGE GLUCOSE 65 MG/DL (60-110); HEMOGLOBIN A1c 3.9 %
== END ==
LOC: M SFHCLACO 08:46
DX: E78.2 Mixed hyperlipidemia (principal); E11.9 Type 2 diabetes mellitus without complications
CPT/HCPCS: 80053

== ENCOUNTER → 2018-05-22 | Outpatient (REF) | payer OTHER ==
[2018-05-22 15:20] LABS: ESTIMATED AVERAGE GLUCOSE 108 MG/DL (60-110); HEMOGLOBIN A1c 5.4 %
[2018-05-22 15:23] LABS: ALBUMIN 2.9 GM/DL (3.2-5.2); ALBUMIN/GLOBULIN RATIO 0.66 (1.00-1.93); ALKALINE PHOSPHATASE 736 U/L (45-117); ALT/SGPT 100 U/L (12-78); ANION GAP 7 MEQ/L (8-16); AST/SGOT 80 U/L (7-37); BILIRUBIN,TOTAL 0.8 MG/DL (0.2-1.0); BLOOD UREA NITROGEN 14 MG/DL (7-18); CALCIUM LEVEL 8.7 MG/DL (8.5-10.1); CARBON DIOXIDE LEVEL 27 MEQ/L (21-32); CHLORIDE LEVEL 106 MEQ/L (98-107); CHOLESTEROL LEVEL 145 MG/DL (<200); CHOLESTEROL RISK RATIO 3.085 (<5); CREATININE FOR GFR 0.84 MG/DL (0.70-1.30); GLOMERULAR FILTRATION RATE > 60.0 (>56); GLUCOSE, FASTING 86 MG/DL (70-100); HDL CHOLESTEROL 47 MG/DL (>40); LDL CHOLESTEROL 78.6 MG/DL (<100); NON-HDL-C 98 MG/DL; POTASSIUM SERUM 4.6 MEQ/L (3.5-5.1); SODIUM LEVEL 140 MEQ/L (136-145); TOTAL PROTEIN 7.3 GM/DL (6.4-8.2); TRIGLYCERIDES LEVEL 97 MG/DL (<150)
== END ==
LOC: M SFHCLACO 09:17
DX: I10 Essential (primary) hypertension (principal); E11.9 Type 2 diabetes mellitus without complications